=== PATIENT | female | born 1950 | race Caucasian/White ===

== ENCOUNTER 2019-12-24 12:01 | Emergency (ER) | payer OTHER, MEDICARE ==
--- OUTSIDE RECORDS SUMMARY | 2019-12-24 12:03 | XMS REPORT ---
:1950 Author Organization eClinicalWorks Care Team Providers Name Role Phone Mathew Hartman Provider Role Unavailable Allergies No Known Allergies Problems Problem Type Condition Code Onset Dates Condition Status Problem Current moderate episode of major F32.1 Active depressive disorder without prior episode Problem CKD (chronic kidney disease), stage N18.3 Active III Problem Uncontrolled type 2 diabetes E11.65 Active mellitus without complication, without long-term current use of insulin Problem Subclinical hypothyroidism E03.9 Active Problem Adult BMI 30.0-30.9 kg/sq m Z68.30 Active Problem Peripheral arterial disease I73.9 Active Problem Essential hypertension I10 Active Problem Patient is Restorationist Z78.9 Active Problem Atopic dermatitis, unspecified type L20.9 Active Problem Mixed hyperlipidemia E78.2 Active Problem History of bilateral breast cancer Z85.3 Active Problem GERD without esophagitis K21.9 Active Assessment Peripheral arterial disease I73.9 Active Problem Primary insomnia F51.01 Active Medications No Known Medications Results No Known Results Summary Purpose eClinicalWorks Submission
--- OUTSIDE RECORDS SUMMARY | 2019-12-24 12:03 | XMS REPORT ---
[...] without long-term current use of insulin Problem History of bilateral breast cancer Z85.3 Active Problem GERD without esophagitis K21.9 Active Problem Primary insomnia F51.01 Active Problem Subclinical hypothyroidism E03.9 Active Problem Adult BMI 30.0-30.9 kg/sq m Z68.30 Active Problem Peripheral arterial disease I73.9 Active Problem Essential hypertension I10 Active Problem Patient is Mu-ism Z78.9 Active Problem Atopic dermatitis, unspecified type L20.9 Active Problem Mixed hyperlipidemia E78.2 Active Medications Medication Code Code Instructions Start End Date Status Dosage System Date Praluent [facility] 60614586985 75 MG/ML Sep 14, Active as directed Subcutaneous 2018 Results No Known Results Summary Purpose eClinicalWorks Submission
--- OUTSIDE RECORDS SUMMARY | 2019-12-24 12:03 | XMS REPORT ---
:1950 Author Organization [facility] Address [address] [place] [address] Dr. [place] [address] [place] [address] Care Team Providers Name Role Phone RICOGRACIELA EMERY Unavailable Unavailable Problems This patient has no known problems. Allergies, Adverse Reactions, Alerts This patient has no known allergies or adverse reactions. Medications This patient has no known medications. Results Test Description Test Time Test Comments Text Results Atomic Results Result Comments POCT-CREATININE 2016-12-24 12:38:00 Test Item Value Reference Range Comments POC-CREATININE (BEAKER) (test 1.2 mg/dL 0.6-1.3 TESTED AT [facility] [id number][facility] [address] POC-EGFR (BEAKER) (test 45 mL/min/1.73M2 [id number]=[id number])
--- OUTSIDE RECORDS SUMMARY | 2019-12-24 12:03 | XMS REPORT ---
[...] Essential hypertension I10 Active Problem Patient is Christian Z78.9 Active Problem Atopic dermatitis, unspecified type L20.9 Active Problem Mixed hyperlipidemia E78.2 Active Medications No Known Medications Results No Known Results Summary Purpose eClinicalWorks Submission
--- OUTSIDE RECORDS SUMMARY | 2019-12-24 12:04 | XMS REPORT ---
:1950 Author Organization eClinicalWorks Care Team Providers Name Role Phone Mathew Hartman Provider Role Unavailable Allergies, Adverse Reactions, Alerts Substance Reaction Event Type N.K.D.A. Info Not Available Non Drug Allergy Problems Problem Type Condition Code Onset Dates Condition Status Problem Primary insomnia F51.01 Active Problem Mixed hyperlipidemia E78.2 Active Problem Essential hypertension I10 Active Problem Chronic kidney disease, stage 3 N18.3 Active (moderate) Problem Iron deficiency anemia secondary to D50.8 Active inadequate dietary iron intake Problem Type 2 diabetes mellitus with E11.22 Active diabetic chronic kidney disease Problem Subclinical hypothyroidism E03.9 Active Problem Atopic dermatitis, unspecified type L20.9 Active Problem Peripheral arterial disease I73.9 Active Problem Adult BMI 30.0-30.9 kg/sq m Z68.30 Active Assessment Localized swelling of right lower R22.41 Active leg Assessment Pain in right lower leg M79.661 Active Problem CKD (chronic kidney disease), stage N18.3 Active III Problem Patient is Muslim Z78.9 Active Problem Current moderate episode of major F32.1 Active depressive disorder without prior episode Problem History of bilateral breast cancer Z85.3 Active Problem Uncontrolled type 2 diabetes E11.65 Active mellitus without complication, without long-term current use of insulin Problem GERD without esophagitis K21.9 Active Medications Medication Code Code Instructions Start End Status Dosage System Date Date Tizanidine HCl [facility] 28001235083 4 MG Orally Active 1 tablet as once a day needed Tamoxifen ND 19803564423 20 MG Orally Active 1 tablet Citrate Once a day Metformin HCl ND 94800105172 500 MG Orally Active 1 tablet with Twice a day a meal Tizanidine HCl ND 18653035615 4 MG Orally Active 1 tablet as once a day needed Ramipril ND 56068251339 2.5 MG Orally Active 1 capsule Once a day Prozac [facility] 26383810965 20 MG Orally Active 1 capsule in Once a day the morning Januvia [facility] 12462683772 50 MG Orally Active 1 tab once a day Amlodipine [facility] 99189177646 5 MG Orally Active 1 tablet Besylate Once a day Praluent [facility] 59356211810 75 MG/ML Sep 14, Active as directed Subcutaneous 2019 Triamcinolone ND 76940103742 0.1 % Oct 22, Active 1 application Acetonide Externally 2018 to affected Twice a day area Zocor [facility] 58354682731 20 MG Orally Nov 25, Active 1 tablet in Once a day 2019 the evening Bisoprolol-Union [facility] 85040508845 10-6.25 MG Active 1 tablet chlorothiazide Orally Once a day Simvastatin [facility] 24186676824 20 MG Active TAKE 1 TABLET BY MOUTH EVERY DAY IN THE EVENING Ferrous Sulfate [facility] 95602929200 325 (65 Fe) MG Nov 25, Active 1 tablet Orally BID [address] [facility] 76475714729 20 MG Orally Active 1 tablet Once a day Results No Known Results Summary Purpose eClinicalWorks Submission
--- OUTSIDE RECORDS SUMMARY | 2019-12-24 12:04 | XMS REPORT ---
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
--- OUTSIDE RECORDS SUMMARY | 2019-12-24 12:04 | XMS REPORT ---
:1950 Author Organization eClinicalWorks Care Team Providers Name Role Phone Mathew Hartman Provider Role Unavailable Allergies, Adverse Reactions, Alerts Substance Reaction Event Type N.K.D.A. Info Not Available Non Drug Allergy Problems Problem Type Condition Code Onset Dates Condition Status Assessment Patient is Confucianism Z78.9 Active Assessment Statin intolerance Z78.9 Active Assessment Adult BMI 30.0-30.9 kg/sq m Z68.30 Active Assessment CKD (chronic kidney disease), stage N18.3 Active III Assessment History of bilateral breast cancer Z85.3 Active Assessment GERD without esophagitis K21.9 Active Problem History of bilateral breast cancer Z85.3 Active Assessment Subclinical hypothyroidism E03.9 Active Problem GERD without esophagitis K21.9 Active Assessment Primary insomnia F51.01 Active Problem Primary insomnia F51.01 Active Problem Mixed hyperlipidemia E78.2 Active Problem Essential hypertension I10 Active Problem Chronic kidney disease, stage 3 N18.3 Active (moderate) Problem Iron deficiency anemia secondary to D50.8 Active inadequate dietary iron intake Assessment Mixed hyperlipidemia E78.2 Active Assessment Essential hypertension I10 Active Problem Type 2 diabetes mellitus with E11.22 Active diabetic chronic kidney disease Assessment Current moderate episode of major F32.1 Active depressive disorder without prior episode Problem Subclinical hypothyroidism E03.9 Active Problem Atopic dermatitis, unspecified type L20.9 Active Problem Peripheral arterial disease I73.9 Active Problem Adult BMI 30.0-30.9 kg/sq m Z68.30 Active Assessment Type 2 diabetes mellitus with E11.22 Active diabetic chronic kidney disease Assessment Iron deficiency anemia secondary to D50.8 Active inadequate dietary iron intake Assessment Medicare annual wellness visit, Z00.00 Active subsequent Problem CKD (chronic kidney disease), stage N18.3 Active III Problem Patient is Confucianism Z78.9 Active Problem Current moderate episode of major F32.1 Active depressive disorder without prior episode Problem Uncontrolled type 2 diabetes E11.65 Active mellitus without complication, without long-term current use of insulin Medications Medication Code Code Instructions Start End Status Dosage System Date Date Ramipril [facility] 90441357518 2.5 MG Orally Active 1 capsule Once a day Zocor [facility] 86280927175 20 MG Orally Nov 25, Active 1 tablet in Once a day 2019 the evening Bisoprolol-[place] [facility] 09919406575 10-6.25 MG Active 1 tablet chlorothiazide Orally Once a day Praluent [facility] 07283661598 75 MG/ML Sep 14, Active as directed Subcutaneous 2018 Triamcinolone [facility] 48162694253 0.1 % Oct 22, Active 1 application Acetonide Externally 2018 to affected Twice a day area Prozac [facility] 26434660028 20 MG Orally Active 1 capsule in Once a day the morning Tizanidine HCl [facility] 49420227711 4 MG Orally Active 1 tablet as once a day needed Tizanidine HCl [facility] 53570173129 4 MG Orally Active 1 tablet as once a day needed Tamoxifen [facility] 78773026122 20 MG Orally Active 1 tablet Citrate Once a day Metformin HCl [facility] 72715971253 500 MG Orally Active 1 tablet with Twice a day a meal Ramipril [facility] 04900173650 2.5 MG Orally Active 1 capsule Once a day Prozac [facility] 22617265283 20 MG Orally Active 1 capsule in Once a day the morning Ferrous Sulfate [facility] 70280565407 325 (65 Fe) MG Nov 25, Active 1 tablet Orally BID 2019 Prilosec C [facility] 19636657281 20 MG Orally Active 1 tablet Once a day Bisoprolol-[place] [facility] 49171128766 10-6.25 MG Active 1 tablet chlorothiazide Orally Once a day Novuvia [facility] 69865737837 50 MG Orally Active 1 tab once a day Ezetimibe [facility] 56290811360 10 MG Orally Inactive 1 tablet Once a day Amlodipine [facility] 28657339940 5 MG Orally Active 1 tablet Besylate Once a day Amlodipine [facility] 09468971320 5 MG Orally Active 1 tablet Besylate Once a day Results No Known Results Summary Purpose eClinicalWorks Submission
--- NOTE | 2019-12-24 15:52 | RAD REPORT ---
EXAM DESCRIPTION: RAD - Knee Right 3 View - 12/24/2019 2:21 pm CLINICAL HISTORY: KNEE PAIN PT STATES FELT A POP, trauma to the knee COMPARISON: No comparisonsNone. FINDINGS: No fracture, dislocation or periosteal reaction.Trace amount of joint fluid is present. Th ere is marginal spurring in the patella. No joint space narrowing. No foreign body or other soft tiss ue abnormality. IMPRESSION: Minimal for age right knee joint degenerative change. No acute finding. Clinical concerns for internal derangement or occult bony injury could be further assessed with MR im aging.
--- NOTE | 2019-12-24 16:17 | ER ---
Nurse's Notes [facility] Name: Yelena Ortez Age: 69 yrs Sex: Female : 1950 Arrival Date: 12/24/2019 Time: 12:03 Bed 26 Private MD: Diagnosis: Internal derangement of knee Presentation: 12/24 12:17 Presenting complaint: Patient states: "I had gone to Dr. Hartman on Thursday because my aj1 right leg was swelling and he told me i have peripheral edema, last night I was standing up and I heard a real loud pop in my knee and it became really painful and I couldn't stand on it, and its swollen up more. Transition of care: patient was not received from another setting of care. Onset of symptoms was December 2019. Risk Assessment: Do you want to hurt yourself or someone else? Patient reports no desire to harm self or others. Initial Sepsis Screen: Does the patient meet any 2 criteria? No. Patient's initial sepsis screen is negative. Does the patient have a suspected source of infection? No. Patient's initial sepsis screen is negative. Care prior to arrival: None. 12:17 Method Of Arrival: Wheelchair aj1 12:17 Acuity: MARKUS 4 aj1 Triage Assessment: 12:21 General: Appears in no apparent distress. uncomfortable, Behavior is calm, cooperative, aj1 appropriate for age. Pain: Complains of pain in right knee. Neuro: Level of Consciousness is awake, alert, obeys commands. Cardiovascular: Patient's skin is warm and dry. Respiratory: Airway is patent Respiratory effort is even, unlabored, Respiratory pattern is regular, symmetrical. Historical: - Allergies: 12:21 No Known Allergies; aj1 - Home Meds: 12:21 amlodipine 5 mg tab 1 tab once daily [Active]; bisoprolol-hydrochlorothiazide 10-6.25 aj1 mg oral tab 1 tab once daily [Active]; ramipril 2.5 mg Oral cap 1 cap once daily [Active]; Januvia 100 mg oral tab 1 tab once daily [Active]; Prilosec 20 mg Oral cpDR 1 cap once daily [Active]; Prozac 20 mg Oral cap 1 cap once daily [Active]; tizanidine 4 mg oral tab 1 tab at bedtime [Active]; - PMHx: 12:21 Hypertension; Diabetes - NIDDM; GERD; breast cancer; aj1 - PSHx: 12:21 back surgery; Hysterectomy; eye surgery; Hernia repair; Mastectomy; shoulder surgery; aj1 cataract surgery; - Immunization history:: Flu vaccine is up to date. - Coronavirus screen:: The patient has NOT traveled to [place] in the past 14 days. - Social history:: Smoking status: Patient/guardian denies using tobacco. - Ebola Screening: : Patient denies travel to an Ebola-affected area in the 21 days before illness onset. Screenin:55 Abuse screen: Denies threats or abuse. Nutritional screening: No deficits noted. vc Tuberculosis screening: No symptoms or risk factors identified. Fall Risk Ambulatory Aid- Crutches/Cane/Walker (15 pts). Gait- Weak (10 pts.). Total [place]a Fall Scale indicates Low Risk Score (25-44 pts). Vital Signs: 12:21 BP 122 / 62; Pulse 67; Resp 18; Temp 97.8; Pulse Ox 98% on R/A; Weight 81.65 kg (R); aj1 Height 5 ft. 4 in. (162.56 cm) (R); Pain 9/10; 13:30 BP 127 / 76; Pulse 66; Resp 17; Pulse Ox 98% on R/A; vc 15:18 BP 134 / 78; Pulse 60; Resp 16; Temp 97.8; Pulse Ox 98% ; lt1 16:00 BP 126 / 77; Pulse 68; Resp 18; Pulse Ox 98% on R/A; vc 12:21 Body Mass Index 30.90 (81.65 kg, 162.56 cm) [facility] ED Course: 12:03 Patient arrived in ED. as 12:18 Triage completed. aj1 12:21 Arm band placed on Patient placed in an exam room. [facility] 12:33 Moe Hughes PA is PHCP. [facility] 12:33 Ren Bagley MD is Attending Physician. [facility] 12:55 Patient has correct armband on for positive identification. Sitting in wheelchair, per patient request. 13:19 Angelika Carrasco, RN is Primary Nurse. 15:15 Knee Right 3 View XRAY Sent. 16:16 Rohit Sheridan MD is Referral Physician. [facility] 16:25 No provider procedures requiring assistance completed. Patient did not have IV access vc during this emergency room visit. Knee immobilizer applied on right knee. Administered Medications: No medications were administered Outcome: 16:16 Discharge ordered by . bud 16:25 Discharged to home via wheelchair, with significant other. vc 16:25 Condition: good 16:25 Discharge instructions given to patient, significant other, Instructed on discharge instructions, follow up and referral plans. Demonstrated understanding of instructions, follow-up care. 16:28 Patient left the ED. vc Signatures: Rosette Metz, RN RN aj1 Moe Hughes PA PA Yaritza Messer Leah lt1 Angelika Carrasco RN RN vc Corrections: (The following items were deleted from the chart) 19:49 19:47 To radiology for Knee Right 3 View+RAD.RAD.BRZ. vc vc
--- NOTE | 2019-12-24 16:17 | EDPHYS ---
Physician Documentation [facility] Name: Yelena Ortez Age: 69 yrs Sex: Female : 1950 Arrival Date: 12/24/2019 Time: 12:03 Bed 26 Private MD: ED Physician Ren Bagley HPI: 12/24 12:42 This 69 yrs old Female presents to ER via Wheelchair with complaints of Knee jmm Pain - swelling. 12:42 The patient presents with an injury, pain, that is acute, swelling. Onset: The jmm symptoms/episode began/occurred acutely, yesterday. Modifying factors: The symptoms are alleviated by remaining still, the symptoms are aggravated by weight bearing. This is a 69 year old female with a history of htn, dm, that presents to the ED with complaints of right knee pain which occurred after standing and hearing a loud pop. Patient states she has been having ongoing pain and swelling to the leg. PCP ordered outpatient US to rule out DVT which was negative and diagnosed the patient with peripheral edema. Patient denies chest pain or shortness of breath. . Historical: - Allergies: 12:21 No Known Allergies; aj1 - Home Meds: 12:21 amlodipine 5 mg tab 1 tab once daily [Active]; bisoprolol-hydrochlorothiazide 10-6.25 aj1 mg oral tab 1 tab once daily [Active]; ramipril 2.5 mg Oral cap 1 cap once daily [Active]; Januvia 100 mg oral tab 1 tab once daily [Active]; Prilosec 20 mg Oral cpDR 1 cap once daily [Active]; Prozac 20 mg Oral cap 1 cap once daily [Active]; tizanidine 4 mg oral tab 1 tab at bedtime [Active]; - PMHx: 12:21 Hypertension; Diabetes - NIDDM; GERD; breast cancer; aj1 - PSHx: 12:21 back surgery; Hysterectomy; eye surgery; Hernia repair; Mastectomy; shoulder surgery; aj1 cataract surgery; - Immunization history:: Flu vaccine is up to date. - Coronavirus screen:: The patient has NOT traveled to [place] in the past 14 days. - Social history:: Smoking status: Patient/guardian denies using tobacco. - Ebola Screening: : Patient denies travel to an Ebola-affected area in the 21 days before illness onset. ROS: 12:42 Constitutional: Negative for fever, chills, and weight loss, Cardiovascular: Negative [facility] for chest pain, palpitations, and edema, Respiratory: Negative for shortness of breath, cough, wheezing, and pleuritic chest pain, Abdomen/GI: Negative for abdominal pain, nausea, vomiting, diarrhea, and constipation. 12:42 MS/extremity: Positive for injury or acute deformity, pain, swelling. 12:42 All other systems are negative. Exam: 12:42 Constitutional: This is a well developed, well nourished patient who is awake, alert, jmm and in no acute distress. Head/Face: atraumatic. Eyes: EOMI, no conjunctival erythema appreciated ENT: Moist Mucus Membranes Neck: Trachea midline, Supple Chest/axilla: Normal chest wall appearance and motion. Cardiovascular: Regular rate and rhythm. No edema appreciated Respiratory: Normal respirations, no respiratory distress appreciated Abdomen/GI: Non distended, soft Back: Normal ROM Skin: General appearance color normal 12:42 Musculoskeletal/extremity: ROM: intact in all extremities, medial and lateral knee pain is elicited on ROM, compartments are soft, NVI. 12:42 Skin: Appearance: Color: normal in color. 12:42 Neuro: Orientation: is normal, Mentation: is normal, Memory: is normal. 12:42 Psych: Behavior/mood is pleasant, cooperative. Vital Signs: 12:21 BP 122 / 62; Pulse 67; Resp 18; Temp 97.8; Pulse Ox 98% on R/A; Weight 81.65 kg (R); aj1 Height 5 ft. 4 in. (162.56 cm) (R); Pain 9/10; 13:30 BP 127 / 76; Pulse 66; Resp 17; Pulse Ox 98% on R/A; vc 15:18 BP 134 / 78; Pulse 60; Resp 16; Temp 97.8; Pulse Ox 98% ; lt1 16:00 BP 126 / 77; Pulse 68; Resp 18; Pulse Ox 98% on R/A; vc 12:21 Body Mass Index 30.90 (81.65 kg, 162.56 cm) aj1 MDM: 12:42 Patient medically screened. [facility] 16:15 Data reviewed: vital signs, nurses notes. Counseling: I had a detailed discussion with bud the patient and/or guardian regarding: the historical points, exam findings, and any diagnostic results supporting the discharge/admit diagnosis, radiology results, the need for outpatient follow up, to return to the emergency department if symptoms worsen or persist or if there are any questions or concerns that arise at home. ED course: Patient advised to follow up with pcp or ortho for further evaluation. patient understood and agrees with the plan of care. . 12/24 12:57 Order name: Knee Right 3 View XRAY [facility] 12/24 15:50 Order name: Knee Immobilizer; Complete Time: 16:19 [facility] Administered Medications: No medications were administered Disposition: 17:53 Co-signature as Attending Physician, Ren Bagley MD. rn Disposition: 12/24/19 16:16 Discharged to Home. Impression: Internal derangement of knee. - Condition is Stable. - Discharge Instructions: Knee Pain. - Prescriptions for Tylenol- Codeine #3 300-30 mg Oral Tablet - take 1 tablet by ORAL route every 6 hours As needed; 12 tablet. - Medication Reconciliation Form, Thank You Letter, Antibiotic Education, Prescription Opioid Use form. - Follow up: Rohit Sheridan MD; When: 2 - 3 days; Reason: Recheck today's complaints, Continuance of care, Re-evaluation by your physician. Signatures: Dispatcher [employer] EDMS Rosette Metz RN RN aj1 Moe Hughes PA PA [facility] Ren Bagley MD MD rn Calcote, Vanessa, RN RN vc Corrections: (The following items were deleted from the chart) 16:28 16:16 12/24/2019 16:16 Discharged to Home. Impression: Internal derangement of knee. vc Condition is Stable. Forms are Medication Reconciliation Form, Thank You Letter, Antibiotic Education, Prescription Opioid Use. Follow up: Dr. Rohit Sheridan; When: 2 - 3 days; Reason: Recheck today's complaints, Continuance of care, Re-evaluation by your physician. [facility]
[2019-12-24 16:56] VITALS: TEMP 97.8; O2SAT 98
[2019-12-24 17:00] VITALS: BP 126/77
== END 2019-12-24 16:28 | disposition home or self-care (01) ==
LOC: ER 12:01
DX: M23.91 Unspecified internal derangement of right knee (principal); I10 Essential (primary) hypertension; E11.9 Type 2 diabetes mellitus without complications; K21.9 Gastro-esophageal reflux disease without esophagitis; Z85.3 Personal history of malignant neoplasm of breast
CPT/HCPCS: 99283

== ENCOUNTER 2021-04-02 15:20 | Emergency (ER) | payer OTHER, MEDICARE ==
--- OUTSIDE RECORDS SUMMARY | 2021-04-02 15:24 | XMS REPORT | Continuity of Care Document ---
:1950 Author Organization [facility] t Address [address] [place] [address] Care Team Providers Name Role Phone RICO Primary Care Physician Unavailable Gunner LEIVA Attending Clinician Doctor Unassigned, Name Attending Clinician Unavailable Lobo LEIVA, A Attending Clinician Torrey LEIVA, J Attending Clinician Sal Negrete MD Attending Clinician MICHELL Attending Clinician Unavailable SHELLI Attending Clinician Unavailable Michell Attending Clinician RICO Attending Clinician Unavailable Sal Negrete MD Admitting Clinician Michell Admitting Clinician Payers Payer Name Policy Type Policy Effective Date Expiration Date Sour ce Number MEDICAREMEDICARE PART [id number] 2013 MD Duane Manzano AND 00:00:00 [id number] ON, [place] [employer] [id number] 2017 MD Zepeda OF RETIRED 00:00:00 PERSONSAARP-SECONDARY [id number] 8-PresentMedigap Problems Condition Condition Condition Status Onset Resolution Last Treating Co mments Source Name Details Category Date Date Treatment Clinician Date Diabetes Problem Active 2017-05-01 Mem oria mellitus 3- 04:00:52 l (disorder) Diabetes 00:00: He rmann mellitus 00 (disorder) Active 12/31/2016 Problem 05/01/2017 BS range- 105-170, pt states new onset dm, non-insuli n dependent [facility] Paraesopha Paraesopha Disease Active 2013-[address] geal geal 0-27 [facility] Malignant Problem Active 2017-05-01 Me moria neoplasm, 11-02 04:00:52 l primary 00:00: [place] (morpholog Malignant 00 ic neoplasm, abnormalit primary y) (morpholog ic abnormalit y) Active 4 Problem 7 Breast Cancer- received chemothera py [id number] removed and 2013 [facility] Hypertensi Problem Active 2017-05-01 M emoria ve 11-02 04:00:52 l disorder, 00:00: Stephen systemic Hypertensi 00 arterial ve (disorder) disorder, systemic arterial (disorder) Active 11/02/1989 Problem 05/01/2017 mon by pcp- denies any other cardiac problems [facility] History of History of Problem Resolve Univers Complex Complex d ity of tear of tear of [place] medial medial Physici meniscus meniscus ans of right of right knee as knee as current current injury, injury, initial initial encounter encounter History of History of Problem Resolve Univers Diabetes Diabetes d ity of [place] Physici ans History of History of Problem Resolve Univers High blood High blood d it y of pressure pressure [place] Physici ans History of History of Problem Resolve Univers high high d ity of cholestero cholestero [place] Physici ans Right knee Right knee Problem Active U nivers pain pain ity of [place] Physici ans Osteoarthr Osteoarthr Problem Active U nivers itis of itis of [place] of right knee right knee [place] [facility] Complex Complex Problem Active Univers tear of tear of ity of medial medial [place] meniscus meniscus Physic i of right of right ans knee as knee as current current injury, injury, subsequent subsequent encounter encounter Stress Stress Problem Active Univers fracture fracture ity of of right of right [place] tibia, tibia, Physici initial initial ans encounter encounter Left Left Problem Active Univers shoulder shoulder ity of pain pain [place] Physici ans Rotator Rotator Problem Active Univers cuff cuff ity of arthropath arthropath [place] y of left y of left Phys ici shoulder shoulder ans Traumatic Traumatic Problem Active Uni vers rotator rotator ity of cuff tear, cuff tear, [place] left, left, Physici initial initial ans encounter encounter Acid Problem Active 2017-05-01 Memor ia reflux 04:00:52 l (finding) Acid [place] reflux (finding) Active Problem 05/01/2017 [facility] Depression Problem Active 2017-05-01 M emoria - motion 04:00:52 l (qualifier Gavin n value) Depression - motion (qualifier value) Active Problem 05/01/2017 [facility] Shoulder Problem Active 2017-05-01 Mem oria pain 04:00:52 l (finding) Shoulder Her daniels pain (finding) Active Problem 05/01/2017 right shoulder [facility] Final: Problem 2017-05-01 Memor ia Traumatic 04:00:52 l arthropath Final: Herm morteza y, right Traumatic shoulder arthropath y, right shoulder 05/01/2017 [facility] 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 Pt states from a thyroid medication [facility] History of Past Illness Condition Condition Condition Status Onset Resolution Last Treating Co mments Source Name Details Category Date Date Treatment Clinician Date Discharge Problem 2017-05-01 2017-05-01 Memoria Diagnosis: 04-28 04:00:52 04:00:52 l Pain in 05:00: [place] right Discharge 00 shoulder Diagnosis: Pain in right shoulder 7 05/01/2017 [facility] Allergies, Adverse Reactions, Alerts Allergy Allergy Status Severity Reaction(s) Onset Inactive Treating Comm ents Source Name Type Date Date Clinician No Known DA Active [facility] Allergie 1-15 [place] 00:[place]: [address] Social History Social Habit Start Date Stop Date Quantity Comments Source Sex Assigned At [facility] Social History 2017-04-29 2017-04-29 [facility] Justina lara 14:40:00 14:40:00 Alcohol intake 2014-10-09 2014-10-09 Current [facility] es - 00:00:00 00:00:00 non-drinker of Medical Ce nter alcohol (finding) Smoking Status Start Date Stop Date Source Never smoker [facility] Medications Ordered Filled Start Stop Current Ordering Indication Dosage Frequency Signature Comments Components Source Medication Medication Date Date Medication? Clinician (SIG) Name Name Meloxicam Meloxicam Yes SHASTA TAKE 1 Univers 15 MG Oral 15 MG Oral 3-06 GALARZA M.D. TABLET BY ity of Tablet Tablet 00:00: MOUTH [place] 00 EVERY DAY Physici NEEDED ans Acetaminoph Acetaminoph Yes SHASTA Take 1 Univers en-Codeine en-Codeine 2-27 MARCHS M.D. tablet ity of 300-30 MG 300-30 MG 00:00: every 12 [place] Oral Tablet Oral Tablet 00 hours as Physici needed for ans pain FLUoxetine 2017-11 Yes 20mg Take 20 mg M D (PROzac) 20 0-30 by mouth Ruben rso MG tablet 19:27: daily. n 47 tiZANidine 2017-11 Yes 4mg 4 mg. MD (ZANAFLEX) 0-29 Anderso 4 MG 16:20: n capsule 55 omeprazole 2017-11 Yes 20mg Take 20 mg M D (PriLOSEC) 0-29 by mouth Cas so 20 mg 16:16: every n capsule 24 morning before breakfast. amLODIPine 2017-11 Yes 5mg Take 5 mg MD (NORVASC) 5 0-29 by mouth. And erso mg tablet 16:16: n 24 benazepril 2017-11 Yes 10mg Take 10 mg M D (LOTENSIN) 0-29 by mouth. Ruben rso 10 mg 16:16: n tablet 24 FLUoxetine 2017-11 Yes TAKE 1 MD (PROzac) 20 0-18 CAPSULE BY An derso mg capsule 00:00: MOUTH n 00 EVERY DAY IN THE MORNING PIOTRIA 50 2017-11 Yes TAKE 1 MD mg tablet 0-18 TABLET BY Cas so 00:00: MOUTH n 00 EVERY DAY ramipril 2017-11 Yes TAKE 1 MD (ALTACE) 0-18 CAPSULE BY Cas so 2.5 MG 00:00: MOUTH n capsule 00 EVERY DAY metFORMIN Yes TAKE 1 MD (GLUCOPHAGE 7-03 TABLET BY And erso ) 500 mg 00:00: MOUTH WITH n tablet 00 A MEAL TWICE A DAY ORALLY DAY(S) bisoprolol 2016-11 Yes TAKE 1 MD (ZEBETA) 10 2-26 TABLET BY And erso mg tablet 00:00: MOUTH n 00 EVERY DAY NS bolus No 250 mL, Memori a 250 mL 6-28 IV, BOLUS, l 19:30: other (see comment), start date 04/29/17 14:30:00 CDT Enoxaparin No 40 mg = Jose J red 6-28 0.4 mL, l 14:00: Injection, Subcutaneo us, Daily, first dose 04/29/17 9:00:00 CDT tamoxifen No 20 mg, Memori a 20 mg oral 6-28 Misc, l tablet 14:00: Oral, Daily, first dose 04/29/17 9:00:00 CDT, Patient's Own Meds Januvia No 50 mg = 1 Memor ia 6-28 tabs, Tab, l 14:00: Oral, Daily, first dose 04/29/17 9:00:00 CDT, Patient's Own Meds Prilosec No 20 mg = 1 Jose J red 6-28 caps, l 14:00: Cap-EC, Oral, Daily, first dose 04/29/17 9:00:00 CDT PROzac 20 No 20 mg, Memori a mg oral 6-28 Misc, l capsule 14:00: Oral, Daily, first dose 04/29/17 9:00:00 CDT, Patient's Own Meds bisoprolol- No 1 tabs, Mem oria hydroCHLORO 6-28 Misc, l thiazide 10 14:00: Oral, Kendal nn mg-6.25 mg 00 Daily, oral tablet first dose 04/29/17 9:00:00 CDT, Patient's Own Meds benazepril 2016- No 10 mg = 1 Me moria 6-28 tabs, Tab, l 14:00: Oral, [place] Daily, first dose 04/29/17 9:00:00 CDT, Patient's Own Meds Amlodipine No 5 mg = 1 Mem oria -28 tabs, Tab, l 14:00: Oral, Stephen Daily, first dose 04/29/17 9:00:00 CDT Acetaminoph 2016- Yes Special Mem oria en 325 MG / 6-28 Instructio l Hydrocodone 12:51: ns: 1 tabs Stephen Bitartrate 00 Oral 10 MG Oral q4-6hr Tablet [[place] 10/325] Celebrex No 200 mg = 2 Mem oria -28 caps, Cap, l 02:00: Oral, BID, first dose 04/28/17 21:00:00 CDT Colace No 100 mg = 1 Memor ia -28 caps, Cap, l 02:00: Oral, BID, first dose 04/28/17 21:00:00 CDT Milk of No 30 mL, Memoria Magnesia 6-28 Susp, l 02:00: Oral, BID, first dose 04/28/17 21:00:00 CDT Cefazolin No 2 gm, Memoria 28 Soln-IV, l 00:30: IV Stephen 00 Piggyback, q8hr, infuse over 30 minutes, order duration: 3 doses, first dose 04/28/17 19:30:00 CDT, stop date 04/29/17 19:29:00 CDT, Prophylaxi s Cefazolin Yes 1 gm, Memoria 6-27 Soln-IV, l 22:00: IV Stephen 00 Piggyback, q8hr, infuse over 30 minutes, order duration: 3 doses, first dose 04/28/17 17:00:00 CDT, stop date 04/29/17 16:59:00 CDT, Prophylaxi s insulin 2016-0 No 3 - 15 Memoria regular 6-27 units, l sliding 21:30: Injection, Herm morteza scale 00 Subcutaneo MEDIUM us, QIDACHS, first dose 04/28/17 16:30:00 CDT Sodium 2017-0 No 1,000 mL, Memori a Chloride 6-27 IV, 75 l 0.9% 1,000 20:10: mL/hr, Kendal nn mL 00 start date 04/28/17 15:10:00 CDT Ondansetron No 8 mg = 1 Me moria 6-27 tabs, l 19:41: Tab-Dis, Stephen 00 Oral, q6hr PRN for nausea/vom iting, first dose 04/28/17 14:41:00 CDT Ondansetron No 4 mg = 2 Me moria 6-27 mL, l 19:30: Injection, Stephen 00 IV Push, q8hr PRN for nausea/vom iting, first dose 04/28/17 14:30:00 CDT Morphine No 3 mg = 0.3 Mem oria 6-27 mL, l 19:30: Injection, [place] 00 IV Push, q3hr PRN for breakthrou gh pain, first dose 04/28/17 14:30:00 CDT Promethazin No 25 mg = 1 M emoria e 6-27 mL, l 19:30: Injection, Stephen 00 IM, q4hr PRN for severe nausea, first dose 04/28/17 14:30:00 CDT Diphenhydra No 25 mg = 1 M emoria mine 6-27 caps, Cap, l 19:30: Oral, q8hr [place] 00 PRN for itching, first dose 04/28/17 14:30:00 CDT Acetaminoph No Notes: Max Memoria en 325 MG / 6-27 4gm l Hydrocodone 19:30: acetaminop Stephen Bitartrate 00 hen in 24 10 MG Oral hours Tablet [[place] 10/325] Lactated No IV, start Jose J red Ringers 27 date l Injection 18:59: 04/28/17 Herm morteza 00 13:59:00 CDT, stop date 04/28/17 13:59:00 CDT Bupivacaine Yes 300 mL, Mem oria 0.25% 300 04-28 Nerve l mL pump 300 18:56: Block, 5 He rmann mL 00 mL/hr, start date 04/28/17 13:56:00 CDT Ondansetron No 8 mg = 1 Me moria 6-27 tabs, l 18:56: Tab-Dis, Stephen 00 Oral, Once PRN for nausea/vom iting, first dose 04/28/17 13:56:00 CDT Promethazin No 12.5 mg = M emoria e -27 0.5 mL, l 18:56: Injection, [place] IM, Once PRN for severe nausea, first dose 04/28/17 13:56:00 CDT Saline Lock No 10 mL, Jos Ej red Flush 04-28 Soln, IV l 18:56: Push, As [place] 00 Indicated PRN for flush, first dose 04/28/17 13:56:00 CDT Levalbutero No 0.63 mg = M emoria l 0.21 04-28 3 mL, l MG/ML 18:56: Soln, NEB, Gavin n Inhalant 00 Once PRN Solution for [Xopenex] shortness of breath or wheezing, first dose 04/28/17 13:56:00 CDT Dilaudid No 0.2 mg = Memor ia -27 0.2 mL, l 18:56: Injection, Stephen IV Push, q10min PRN for pain severe (7-10), first dose 04/28/17 13:56:00 CDT Lactated No IV, start Jose J red Ringers 04-28 date l Injection 18:26: 04/28/17 Herm morteza 00 13:26:00 CDT, stop date 04/28/17 13:26:00 CDT neostigmine No 4 mg = 8 Me moria 6-27 mL, l 18:21: Injection, [place] IV, Once, first dose 04/28/17 13:21:00 CDT, stop date 04/28/17 13:21:00 CDT glycopyrrol No 0.6 mg = 3 Memoria ate 6-27 mL, l 18:20: Injection, Stephen 00 IV, Once, first dose 04/28/17 13:20:00 CDT, stop date 04/28/17 13:20:00 CDT ondansetron 2016- No 4 mg = 2 Me moria 6-27 mL, l 18:17: Injection, Stephen 00 IV, Once, first dose 04/28/17 13:17:00 CDT, stop date 04/28/17 13:17:00 CDT LR 1,000 mL 2016-0 No 1,000 mL, M emoria 6-27 IV, 75 l 18:03: mL/hr, Stephen 00 start date 04/28/17 13:03:00 CDT Saline Lock No 10 mL, Jose J red Flush 04-28 Soln, IV l 18:03: Push, As Stephen 00 Indicated PRN for flush, first dose 04/28/17 13:03:00 CDT Ondansetron No 4 mg = 2 Me moria 6-27 mL, l 18:03: Injection, [place] 00 IV Push, q6hr PRN for nausea/vom iting, first dose 04/28/17 13:03:00 CDT ePHEDrine 2016-0 No 5 mg = 0.1 Me moria 6-27 mL, l 18:02: Injection, Stephen 00 IV, Once, first dose 04/28/17 13:02:00 CDT, stop date 04/28/17 13:02:00 CDT fentaNYL No 50 mcg = 1 Mem oria 6-27 mL, l 17:53: Injection, Stephen 00 IV, Once, first dose 04/28/17 12:53:00 CDT, stop date 04/28/17 12:53:00 CDT ePHEDrine 2016-0 No 15 mg = Memor ia - 0.3 mL, l 17:46: Injection, [place] 00 IV, Once, first dose 04/28/17 12:46:00 CDT, stop date 04/28/17 12:46:00 CDT phenylephri 2016-0 No 0.1 mg = Me moria ne - 0.01 mL, l 17:34: Injection, [place] 00 IV, Once, first dose 04/28/17 12:34:00 CDT, stop date 04/28/17 12:34:00 CDT phenylephri 2017-0 No 0.1 mg = Me moria ne + 6-27 0.01 mL, l sterile 17:24: Injection, Herm morteza water 1 mL 00 IV, Once, first dose 04/28/17 12:24:00 CDT, stop date 04/28/17 12:24:00 CDT ePHEDrine 2017-0 No 10 mg = Memor ia 6-27 0.2 mL, l 17:13: Injection, Stephen 00 IV, Once, first dose 04/28/17 12:13:00 CDT, stop date 04/28/17 12:13:00 CDT ePHEDrine 2017-0 No 10 mg = Memor ia 6-27 0.2 mL, l 16:58: Injection, [place] 00 IV, Once, first dose 04/28/17 11:58:00 CDT, stop date 04/28/17 11:58:00 CDT ePHEDrine 2017-0 No 10 mg = Memor ia 6-27 0.2 mL, l 16:53: Injection, Stephen 00 IV, Once, first dose 04/28/17 11:53:00 CDT, stop date 04/28/17 11:53:00 CDT dexamethaso 2017-0 No 8 mg = 2 Me moria ne 6-27 mL, l 16:51: Injection, Stephen 00 IV, Once, first dose 04/28/17 11:51:00 CDT, stop date 04/28/17 11:51:00 CDT vecuronium 2017-0 No 5 mg = 0.5 M emoria 04-28 EA, l 16:47: Powder-Inj [place] 00 , IV, Once, first dose 04/28/17 11:47:00 CDT, stop date 04/28/17 11:47:00 CDT ceFAZolin 2017-0 No 2 gm, Memoria 04-28 Soln-IV, l 16:45: IV Stephen 00 Piggyback, Once, first dose 04/28/17 11:45:00 CDT, stop date 04/28/17 11:45:00 CDT succinylcho 2017-0 No 100 mg = 5 Memoria line 6-27 mL, l 16:33: Injection, Stephen 00 IV, Once, first dose 04/28/17 11:33:00 CDT, stop date 04/28/17 11:33:00 CDT rocuronium 2017-0 No 5 mg = 0.5 M emoria 6-27 mL, l 16:32: Injection, Stephen 00 IV, Once, first dose 04/28/17 11:32:00 CDT, stop date 04/28/17 11:32:00 CDT Misc 2017-0 No 1,000 mL, Memoria Medication 04-28 Soln-IV, l 16:32: IV, Once, [place] first dose 04/28/17 11:32:00 CDT, stop date 04/28/17 11:32:00 CDT propofol 2017- No 100 mg = Memor ia 04-28 10 mL, l 16:32: Emulsion, [place] 00 IV, Once, first dose 04/28/17 11:32:00 CDT, stop date 04/28/17 11:32:00 CDT lidocaine 2017-0 No 2 mL, Memoria 04-28 Injection, l 16:32: IV, Once, [place] 00 first dose 04/28/17 11:32:00 CDT, stop date 04/28/17 11:32:00 CDT midazolam 2017-0 No 1 mg = 1 Jose J red 6-27 mL, l 16:31: Injection, [place] 00 IV, Once, first dose 04/28/17 11:31:00 CDT, stop date 04/28/17 11:31:00 CDT fentaNYL 2017-0 No 50 mcg = 1 Mem oria 6-27 mL, l 16:31: Injection, [place] 00 IV, Once, first dose 04/28/17 11:31:00 CDT, stop date 04/28/17 11:31:00 CDT fentaNYL 2017-0 No 25 mcg = Memor ia -27 0.5 mL, l 16:23: Injection, Stephen 00 IV, Once, first dose 04/28/17 11:23:00 CDT, stop date 04/28/17 11:23:00 CDT midazolam 2017-0 No 0.5 mg = Jose J red 6-27 0.5 mL, l 16:23: Injection, [place] 00 IV, Once, first dose 04/28/17 11:23:00 CDT, stop date 04/28/17 11:23:00 CDT midazolam 2017- No 0.5 mg = Jose J red 6-27 0.5 mL, l 16:05: Injection, Stephen 00 IV, Once, first dose 04/28/17 11:05:00 CDT, stop date 04/28/17 11:05:00 CDT fentaNYL 2017- No 25 mcg = Memor ia 6-27 0.5 mL, l 16:05: Injection, Stephen IV, Once, first dose 04/28/17 11:05:00 CDT, stop date 04/28/17 11:05:00 CDT Cefazolin 2016- No 2 gm, Memoria 6-27 Soln-IV, l 15:00: IV Stephen Piggyback, Once, infuse over 30 minutes, first dose 04/28/17 10:00:00 CDT, stop date 04/28/17 10:00:00 CDT, patient weight 50-120 kg, Prophylaxi s tiZANidine 2016- Yes 2 mg = 1 Mem oria 2 mg oral 6-27 tabs, l tablet 14:24: Oral, qHS, Kendal nn 00 0 Refill(s) Lidocaine 2016- No 0.2 mL, Memor ia 2% 0.2 mL 6-27 Injection, l IV Start 14:07: Subcutaneo [facility]] 00 , Once PRN for other (see comment), first dose 04/28/17 9:07:00 CDT LR 1,000 mL 2016-0 No 1,000 mL, M emoria 6-27 IV, 30 l 14:07: mL/hr, Stephen 00 start date 04/28/17 9:07:00 CDT sitagliptin 2016- Yes 50 mg = 1 M emoria 50 MG Oral 6-16 tabs, l Tablet 21:55: Oral, [place] [Novuv] 00 Daily, # 30 tabs, 0 Refill(s), DM Omeprazole 2016- Yes Special Jose J red 20 MG 6-16 Instructio l Enteric 21:55: ns: [place] Coated 00 instructed Capsule to take [Prilosec] morning of surgery Bisoprolol Yes 1 tabs, Jose J red Fumarate 10 6-16 Oral, l MG / 21:55: Daily, 0 [place] Hydrochloro 00 Refill(s), thiazide HTN 6.25 MG Oral Tablet tamoxifen Yes 20 mg = 1 Mem oria 20 mg oral 6-16 tabs, l tablet 21:55: Oral, [place] 00 Daily, 0 Refill(s), breast cancer Fluoxetine Yes mg caps, Mem oria 20 MG Oral 6-16 Oral, l Capsule 21:55: Daily, 0 Gavin n [Prozac] 00 Refill(s), depression benazepril Yes 10 mg = 1 Me moria 10 mg oral 6-16 tabs, l tablet 21:55: Oral, Stephen 00 Daily, 0 Refill(s), HTN amLODIPine Yes Special Jose J red 5 mg oral 6-16 Instructio l tablet 21:55: ns: take [place] 00 am of procedure tamoxifen Yes Carcinoma TAKE 1 M D (NOLVADEX) 6-27 of areola TABLET BY Anderso 20 mg 00:00: of right MOUTH ONCE n tablet 00 female A DAY breast benazepril 2013-11 Yes 10mg QD Take [address] (LOTENSIN) 2-10 by mouth [facility] - 10 MG 09:11: daily. Medical tablet 23 Center HYDROcodone 2013-11 Yes 1{tbl} Take [address] -acetaminop 2-10 tablet by Anderson baig (NORCO 09:11: mouth Medica l 10-325) 23 every 6 Center 10-325 mg (six) per tablet hours as needed for Pain. TiZANidine 2013-11 Yes 4mg QD Take [address] (ZANAFLEX) 2-10 by mouth [facility] - 4 MG 09:11: daily. Medical capsule 23 Center FLUoxetine 2013-11 Yes 20mg QD Take [address] (PROZAC) 20 2-10 by mouth Luke [facility] - MG tablet 09:11: daily. Medica l 23 Center omeprazole 2013-11 Yes 20mg QD Take [address] (PRILOSEC) 2-10 by mouth [facility] - 20 MG 09:11: daily. Medical capsule 23 [facility] TAMOXIFEN 2014-1 Yes QD Take by [facility]10 mouth [facility] - (TAMOXIFEN 09:11: daily. Medic al ORAL) [address] [place] bisoprolol 2013-11 Yes 10mg QD Take [address] (ZEBETA) 10 2-10 by mouth Luke s - MG tablet 09:11: daily. Medica l [address] [place] amLODIPine 2013-11 Yes 5mg QD Take [address] (NORVASC) 5 2-10 by mouth Luke s - MG tablet 09:11: daily. Medica [address] Tamoxifen Tamoxifen Yes Mathew [address] [facility] [address] Citrate Citrate [place] [facility] Tizanidine Tizanidine Yes Mathew [address] [facility] [address] HCl HCl [place] as needed [facility] Ferrous Ferrous Yes Mathew [address] [facility] Sulfate Sulfate [place] [facility] - [facility] Bisoprolol- Bisoprolol- Yes Mathew [address] [facility] Hydrochloro Hydrochloro [place] [facility] Bisoprolol- Bisoprolol- Yes Mathew [address] [facility] Hydrochloro Hydrochloro [place] [facility] - thiazide thiazide [facility] Simvastatin Simvastatin Yes Mathew TAKE [address] [facility] [place] TABLET BY [facility] - MOUTH Memoria EVERY DAY l IN THE Outpati EVENING ent Clinics True Metrix True Metrix Yes Mathew USE [address] [facility] Blood Blood [place] STRIP ONCE [facility] - Glucose Glucose A DAY IN [facility] ia Test Test VITRO 90 l DAYS [facility] Yes Mathew [address] [facility] [place] in the [facility] - morning [facility] Ramipril Ramipril Yes Mathew [address] [facility] [place] [facility] Zocor Zocor Yes Mathew [address] [facility] [place] in the [facility] - evening [facility] Proza Prozac Yes Mathew [address] [facility] [place] in the [facility] - morning [facility] Metformin Metformin Yes Mathew [address] [facility] HCl HCl [place] with a [facility] - meal [facility] Prilosec Prilosec Yes Mathew [address] OTC OTC [place] [facility] Amlodipine Amlodipine Yes Mathew [address] [facility] Besylate Besylate [place] [facility] ent Clinics Triamcinolo Triamcinolo Yes Mathew APPLY TO [facility] ne ne [place] AFFECTED [facility] - Acetonide Acetonide AREA TWICE Memoria A DAY FOR l 10 DAYS Outpati ent Clinics Eulogioalisonremberto Garcia Yes Mathew [address] [facility] amLODIPine amLODIPine Yes M.A. Uni vers Besylate Besylate ity of TABS TABS [place] [facility]ici ans Bisoprolol Bisoprolol Yes M.A. Uni vers Fumarate Fumarate ity of TABS TABS [place] [facility] ans Ramipril Ramipril Yes M.A. Univers CAPS CAPS ity of [place] Physici ans Eulogioalisonia Eulogioalisonremberto Yes M.A. Univers TABS TABS ity of [place] Physici ans PriLOSEC PriLOSEC Yes M.A. Univers OTC TBEC OTC TBEC ity of [place] [facility]ici ans Prozac TABS Prozac TABS Yes M.A. U nivers ity of [place] Physici ans Simvastatin Simvastatin Yes M.A. U nivers TABS TABS ity of [place] Physici ans Vital Signs Vital Name Observation Time Observation Value Comments Source Temperature Oral (F) 2017-04-29 13:00:00 36.6 [facility] [place] Heart Rate 2017-04-29 13:00:00 [facility] [place] Respitory Rate 2017-04-29 13:00:00 Memori al [place] Systolic (mm Hg) 2017-04-29 13:00:00 Jose J rial [place] Diastolic (mm Hg) 2017-04-29 13:00:00 Mem orial [place] Temperature Oral (F) 2017-04-29 09:00:00 36.8 [facility] [place] Respitory Rate 2017-04-29 09:00:00 Memori al [place] Heart Rate 2017-04-29 09:00:00 [facility] [place] Systolic (mm Hg) 2017-04-29 09:00:00 Jose J rial [place] Diastolic (mm Hg) 2017-04-29 09:00:00 Mem orial [place] Systolic (mm Hg) 2017-04-29 05:00:00 Jose J rial [place] Diastolic (mm Hg) 2017-04-29 05:00:00 Mem orial [place] Respitory Rate 2017-04-29 05:00:00 Maggyhany al [place] Heart Rate 2017-04-29 05:00:00 [facility] [place] Temperature Oral (F) 2017-04-29 05:00:00 36.6 [facility] [place] Temperature Oral (F) 2017-04-28 18:40:00 36.4 [facility] [place] Height 2017-04-28 14:08:00 165.1 cm [facility] [place] Height 2017-04-17 21:45:00 165.1 cm [facility] Stephen Procedures Procedure Date / Time Performing Clinician Source Performed [UTP] Ortho - Surgery 2020-07-16 00:00:00 [facility] Scheduling Physicians MR Shoulder wo contrast 2020-07-06 00:00:00 [facility] [id number] Physicians MR Knee wo contrast 2019-12-28 00:00:00 [facility] [id number] Physicians TOTAL SHOULDER 2017-04-28 17:06:00 [facility] Her daniels REPLACEMENT [id number] IO (Right)<sup>1</sup> eye surgery 2013-11-02 00:00:00 [facility] Her daniels Hiatal hernia 2013-11-02 00:00:00 [facility] Her daniels Mastectomy<sup>2</sup> 2013-11-02 00:00:00 Memnimco Mitchell portacatheter<sup>3</womack 2012-11-02 00:00:00 Jose J lorena Mitchell p> back 2003-11-02 00:00:00 [facility] daniels surgery<sup>4</sup> History of Back Surgery [facility] Physicians History of Hysterectomy [facility] Physicians History of Mastectomy [facility] Physicians History of Shoulder [facility] [place] [facility] Physicians Plan of Care Planned Activity Planned Date Details Comments Source Diagnostic Test 2020-07-16 [UTP] [facility] Pending 00:00:00 Surgery Scheduling Physician s [code = [UTP] Ortho - Surgery Scheduling] Diagnostic Test 2020-07-16 [UTP] [facility] Pending 00:00:00 Surgery Scheduling Physician s [code = [UTP] Ortho - Surgery Scheduling] Diagnostic Test 2020-07-16 [UTP] Ortho [facility] Pending 00:00:00 Surgery Scheduling Physician s [code = [UTP] Ortho - Surgery Scheduling] Diagnostic Test 2020-07-06 MR Shoulder wo [facility] Pending 00:00:00 contrast 02076 [code Physici ans = [id number]] Diagnostic Test 2020-07-06 MR Shoulder wo [facility] Pending 00:00:00 contrast 10842 [code Physici ans = [id number]] Encounters Start End Encounter Admission Attending Care Care Encounter Source Date/Time Date/Time Type Type Clinicians Facility Department ID 2021-03-12 2021-03-12 [facility] [id number] 2021-02-19 2021-02-19 Outpatient [facility] [id number] [facility] 2021-02-08 2021-02-08 Outpatient [facility] [id number] [facility] 2021-01-10 2021-01-10 Orders Doctor AMELIA [id number] 00:00:00 00:00:00 Only Unassigned, MAGEN [id number] Numidia [facility] [id number] [id number] 2021 2021 Telephone IMANI Diamond [id number] 00:00:00 00:00:00 Jessica Worley [id number] [facility] [id number] [facility] [id number] BLDG. [id number] 2020-11-30 2021-01-03 [facility] Joe Hirsch 1.2.84 0.114 [id number] 15:06:00 13:00:00 Encounter Fatmata Negrete Magen [id number] 0 [facility] [id number] 2020-11-07 2020-11-07 Outpatient [facility] [id number] [facility] 2020-11-07 2020-11-07 Outpatient [facility] [id number] [facility] 00[facility]00 [facility] 2020-07-16 2020-07-16 [facility] [id number] [facility] 11:15:00 11:15:00 t; SHASTA GALARZA, - [facility] [facility] 2020-07-10 2020-07-10 [facility] [id number] 10:40:00 10:40:[address] [facility] 2020-07-05 2020-07-05 [facility] [id number] [facility] 10:15:00 10:15:00 t; SHASTA GALARZA, - [facility] [place] RiccardoEvelina [facility]ici [facility] 2020-04-24 2020-04-24 [facility] [id number] 13:27:00 13:27:00 [facility] 2020-04-04 2020-04-04 [facility] [id number] 13:45:00 13:45:00 [facility] 2020-03-28 2020-03-28 [facility] [id number] [facility] 13:47:00 13:47:00 [facility] 2020-02-06 2020-02-06 [facility] [id number] [facility] 11:15:00 11:15:00 t; SHASTA GALARZA, - [facility] [place] MariluToshia [facility]ici [facility] 2020-01-06 2020-01-06 [facility] [id number] [facility] 11:15:00 11:15:00 t; SHASTA GALARZA, - [facility] [place] MariluToshia [facility] 2019-12-30 2019-12-30 [facility] [id number] [facility] 13:15:00 13:15:00 t; SHASTA GALARZA, - [facility] [place] 1 [facility] 2019-12-28 2019-12-28 [facility] [id number] [facility] 13:15:00 13:15:00 t; SHASTA GALARZA, - [facility] [place] 1 [facility] 2019-12-26 2019-12-26 [facility] [id number] 13:33:00 13:33:00 t [place] Nab[place] s - Drive [facility] Medicine Outpati ent Clinics 2019-12-22 2019-12-22 [facility] [id number] 14:00:00 14:00:00 t [place] Nab[place] s - [employer] [facility] Outpat[facility] ent Clinics 2019-12-21 2019-12-21 [facility] [id number] 07:52:00 07:52:00 t [place] [employer] s - Drive [facility] Medicine Outpati ent Clinics 2019-11-25 2019-11-25 [facility] [id number] 10:30:00 10:30:00 t [place] Nabto s - [employer] [facility] Medicine Outpati ent Clinics 2019-09-28 2019-09-28 [facility] [id number] 14:03:00 14:03:00 t [place] [employer] Lu[employer]rov[employer] s - Drive [facility] Medicine Outpati ent Clinics 2019-09-14 2019-09-14 [facility] [id number] 11:37:00 11:37:00 t [place] Che[place] [employer] LuTrovit s - Drive [facility] Medicine Outpati ent Clinics 2019-08-29 2019-08-29 [facility] [id number] 13:19:00 13:19:00 t [place] [employer] - [employer] [facility] Medicine Outpati ent Clinics 2019-08-16 2019-08-16 [facility] [id number] 11:05:00 11:05:00 t [place] Nabto s - Drive [facility] Medicine l Medicine Outpati ent Clinics 2019-08-16 2019-08-16 [facility] [id number] 10:00:00 10:00:00 t [place] Che[place] [employer] s - Drive [facility] l Medicine Outpati ent Clinics 2019-06-20 2019-06-20 [facility] [id number] 11:30:00 11:30:00 t [place] Nabto s - Drive [facility] Medicine Outpati ent Clinics 2019-04-27 2019-04-27 [facility] [id number] 10:45:00 10:45:00 t [place] Nab[place] s - [employer] [facility] Medicine Outpati ent Clinics 2019-01-26 2019-01-26 [facility] [id number] [facility] 10:15:00 10:15:00 t [place] Nab[place] s - [employer] [facility] Medicine Outpati ent Clinics 2018-12-06 2018-12-06 [facility] [id number] [facility] 14:29:00 14:29:00 t [place] Nab[place] s - [employer] [facility] Medicine Medicine Outpati ent Clinics 2018-12-06 2018-12-06 [facility] [id number] [facility] 10:00:00 10:00:00 t [place] Nab[place] s - [employer] [facility] Medicine Outpati ent Clinics 2018-12-02 2018-12-02 [facility] [id number] 09:00:00 09:00:00 t [place] N[place] s - Drive [facility] Medicine Medicine Outpati ent Clinics 2018-10-22 2018-10-22 [facility] [id number] [facility] 09:45:00 09:45:00 t [place] Nab[place] s - Drive [facility] Medicine Medicine Outpati ent Clinics 2018-06-10 2018-06-10 [facility] [id number] 15:07:00 15:07:00 t [place] Nab[place] s - Drive [facility] Medicine l Medicine Outpati ent Clinics 2018-05-04 2018-05-04 [facility] [id number] 11:00:00 11:00:00 [facility] 2018-04-27 2018-04-27 Outpatient Mohan Prestont [id number] 07:42:00 07:42:00 [facility] 2018-04-07 2018-04-07 Appointmen [facility]IS MARQUES [facility] [id number] Univers 15:15:00 15:15:00 t; FRIDA MARQUES ity of [place], M.D. [place] M.D. Physici ans 2018-03-10 2018-03-10 Appointmen CHAPIS MARQUES [facility] [id number] Univers 15:45:00 15:45:00 t; FRIDA MARQUES ity of [place], M.D. [place] M.D. Physici ans 2018-02-01 2018-02-01 [facility] [id number] 10:45:00 10:45:00 [facility] 2017-04-28 2017-04-29 Outpatient Michell, [id number] 07:55:34 09:40:00 Shasta 8 Results Test Description Test Time Test Comments Results Result Comments Source BASIC METABOLIC PANEL 2020-11-17 06:11:00 Test Item Value Reference Range Interpretation Comme nts SODIUM (test code = NA) 137 MMOL/L 137-145 N POTASSIUM (test code = K) 4.4 MMOL/L 3.5-5.1 N CHLORIDE (test code = CL) 100 MMOL/L 98-107 N CARBON DIOXIDE (test code = CO2) 27 MMOL/L 22-30 N GLUCOSE (test code = GLU) 161 MG/DL 74-106 H BLOOD UREA NITROGEN (test code = 15 MG/DL 7-17 N BUN) GLOMERULAR FILTRATION RATE (test 55 Reporting units: ml/min/1.73 code = GFR) m2 (Modified M DRD Formula)Referen ce Range: > or = 60 ml/min/1.7 3 m2 CREATININE (test code = CREAT) 1.00 MG/DL 0.52-1.04 N CALCIUM (test code = CA) 10.1 MG/DL 8.4-10.2 N LIPID PROFILE (CORONARY RISK)2020-11-17 06:11:00 Test Item Value Reference Range Interpretation Comments TRIGLYCERIDES (test 140 MG/DL TRIGLYCE RIDES code = TRIG) REFERENCE RANGE:Normal: < 150 mg/dLBorderline High: 150-199 mg/dLHi gh: 200-499 mg/dLVe ry High: >=500 mg/ dL CHOLESTEROL (test code 132 MG/DL <200 = CHOL) HDL CHOLESTEROL (test 31 MG/DL 40-59 L code = HDL) LIPOPROTEIN LDL (test 74 MG/DL 0-99 N code = LDL) OPTIMAL........ .<100 mg/dLNEAR OPTIMAL/ABOVE OPTIMAL........ .100-12 9 mg/dL BORDERLINE HIGH.........13 0-159 mg/dL HIGH.........16 0-189 mg/dL VERY HIGH...... ...>/= 190 mg/dL [id number] 06:11:00 Test Item Value Reference Range Interpretation Comments MAGNESIUM (test code = MAG) 2.3 MG/DL 1.6-2.3 N BASIC METABOLIC [id number] 06:00:00 Test Item Value Reference Range Interpretation Comments SODIUM (test code = 137 MMOL/L 137-145 N NA) POTASSIUM (test code = 4.4 MMOL/L 3.5-5.1 N K) CHLORIDE (test code = 100 MMOL/L 98-107 N CL) CARBON DIOXIDE (test 27 MMOL/L 22-30 N code = CO2) GLUCOSE (test code = 161 MG/DL 74-106 H GLU) BLOOD UREA NITROGEN 15 MG/DL 7-17 N (test code = BUN) GLOMERULAR FILTRATION 55 Report ing units: RATE (test code = GFR) ml/mi n/1.73 m2 (Modified MDRD Formula)Referen ce Range: > or = 6 0 ml/min/1.73 m2 CREATININE (test code 1.00 MG/DL 0.52-1.04 N = CREAT) CALCIUM (test code = 10.1 MG/DL 8.4-10.2 N CA) LIPID PROFILE (CORONARY RISK)2020-11-17 06:00:00 Test Item Value Reference Range Interpretation Comments TRIGLYCERIDES (test 140 MG/DL TRIGLYCE RIDES code = TRIG) REFERENCE RANGE:Normal: < 150 mg/dLBorderline High: 150-199 mg/dLHi gh: 200-499 mg/dLVe ry High: >=500 mg/ dL CHOLESTEROL (test code 132 MG/DL <200 = CHOL) HDL CHOLESTEROL (test 31 MG/DL 40-59 L code = HDL) LIPOPROTEIN LDL (test MG/DL 0-99 code = LDL) [id number] 06:00:00 Test Item Value Reference Range Interpretation Comments MAGNESIUM (test code = MAG) 2.3 MG/DL 1.6-2.3 N BASIC METABOLIC [id number] 05:59:00 Test Item Value Reference Range Interpretation Comments SODIUM (test code = 137 MMOL/L 137-145 N NA) POTASSIUM (test code = 4.4 MMOL/L 3.5-5.1 N K) CHLORIDE (test code = 100 MMOL/L 98-107 N CL) CARBON DIOXIDE (test MMOL/L 22-30 code = CO2) GLUCOSE (test code = MG/DL 74-106 GLU) BLOOD UREA NITROGEN MG/DL 7-17 (test code = BUN) GLOMERULAR FILTRATION 55 Report ing units: RATE (test code = GFR) ml/mi n/1.73 m2 (Modified MDRD Formula)Referen ce Range: > or = 6 0 ml/min/1.73 m2 CREATININE (test code 1.00 MG/DL 0.52-1.04 N = CREAT) CALCIUM (test code = MG/DL 8.7-9.7 CA) LIPID PROFILE (CORONARY RISK)2020-11-17 05:59:00 Test Item Value Reference Range Interpretation Comments TRIGLYCERIDES (test code = TRIG) MG/DL CHOLESTEROL (test code = CHOL) 132 MG/DL <200 HDL CHOLESTEROL (test code = HDL) MG/DL 40-59 LIPOPROTEIN LDL (test code = LDL) MG/DL 0-99 [id number] 05:59:00 Test Item Value Reference Range Interpretation Comments MAGNESIUM (test code = MAG) MG/DL 1.6-2.3 BASIC METABOLIC [id number] 05:57:00 Test Item Value Reference Range Interpretation Comments SODIUM (test code = NA) 137 MMOL/L 137-145 N POTASSIUM (test code = K) 4.4 MMOL/L 3.5-5.1 N CHLORIDE (test code = CL) 100 MMOL/L 98-107 N CARBON DIOXIDE (test code = CO2) MMOL/L 22-30 GLUCOSE (test code = GLU) MG/DL 74-106 BLOOD UREA NITROGEN (test code = MG/DL 7-17 BUN) GLOMERULAR FILTRATION RATE (test code = GFR) CREATININE (test code = CREAT) MG/DL 0.52-1.04 CALCIUM (test code = CA) MG/DL 8.7-9.7 LIPID PROFILE (CORONARY RISK)2020-11-17 05:57:00 Test Item Value Reference Range Interpretation Comments TRIGLYCERIDES (test code = TRIG) MG/DL CHOLESTEROL (test code = CHOL) MG/DL <200 HDL CHOLESTEROL (test code = HDL) MG/DL 40-59 LIPOPROTEIN LDL (test code = LDL) MG/DL 0-99 [id number] 05:57:00 Test Item Value Reference Range Interpretation Comments MAGNESIUM (test code = MAG) MG/DL 1.6-2.3 PROTHROMBIN [id number] 05:53:00 Test Item Value Reference Range Interpretation Comments PROTHROMBIN TIME 12.6 SECONDS 9.4-12.5 H PATIENT (test code = PTP) INTERNATIONAL NORMAL 1.1 The INR is to be RATIO (test code = used only for INR) monitoring oral anticoagulantth erap y. INDICATION I NR VALUE ---- ---- ---- -------1. Prophylaxis, de ep venous thrombos is, including hig h risk surgery. 2.0 - 3.0 2. Prophylaxis, de ep venous thrombos is, hip surgery, treatment for d eep venous thrombosis or pulmonary prevention of systemic emboli sm in patients wit h valvular heart disease, atrial fibrillation, tissue heart va lve, or acute myocar dial infarction. 2.0 - 3 .0 3. Mechanical prosthesis hear t valves, recurrent syste shantel embolism. 3.0 - 4.5 Comments to Coding Advisor: WILL BRING SPECIMAN TO THE LABPTT [id number] 05:53:00 Test Item Value Reference Range Interpretation Comments PTT ACTIVATED (test code = APTT) 40.9 SECONDS 25.1-36.5 H Comments to Coding Advisor: WILL [facility] 2020-11-17 05:40:00 Test Item Value Reference Range Interpretation Comments WHITE BLOOD CELL (test code = 11.6 K/MM3 3.8-9.8 H WBC) RED BLOOD CELL (test code = 4.42 M/MM3 3.58-4.97 N RBC) HEMOGLOBIN (test code = HGB) 12.7 G/DL 11.2-14.9 N HEMATOCRIT (test code = HCT) 40.4 % 33.2-43.5 N MEAN CELL VOLUME (test code = 91 fL 80.7-99.1 N MCV) MEAN CELL HGB (test code = MCH) 28.7 pg 27.0-34.1 N MEAN CELL HGB CONCETRATION 31.4 % 32.2-35.7 L (test code = MCHC) RED CELL DISTRIBUTION WIDTH 12.7 % 12.1-15.2 N (test code = RDW) PLATELET COUNT (test code = 302 K/MM3 129-368 N PLT) MEAN PLATELET VOLUME (test code 9.8 fl 7.4-10.4 N = MPV) NEUTROPHIL % (test code = NT%) 70.5 % 43-75 N IMMATURE GRANULOCYTE % (test 0.4 % 0.0-2.0 N code = IG%) LYMPHOCYTE % (test code = LY%) 16.0 % 14-44 N MONOCYTE % (test code = MO%) 8.0 % 4-13 N EOSINOPHIL % (test code = EO%) 4.1 % 0-6 N BASOPHIL % (test code = BA%) 1.0 % 0-2 N NUCLEATED RBC % (test code = 0.0 % 0-1.0 N NRBC%) NEUTROPHIL # (test code = NT#) 8.16 K/mm3 2.0-7.6 H IMMATURE GRANULOCYTE # (test 0.05 x10 3/uL 0-0.03 H code = IG#) LYMPHOCYTE # (test code = LY#) 1.85 K/mm3 1.0-3.8 N MONOCYTE # (test code = MO#) 0.92 K/mm3 0.1-0.8 H EOSINOPHIL # (test code = EO#) 0.47 K/mm3 0.0-0.2 H BASOPHIL # (test code = BA#) 0.11 K/mm3 0.0-0.2 N NUCLEATED RBC # (test code = 0.00 K/mm3 0.0-0.1 N NRBC#) COVID 19 Asymptomatic IH [id number] 05:17:00 Test Item Value Reference Range Interpretation Comments COVID 19 NEGATIVE Negative "Negative resul ts from Asymptomatic IH AG patients with symptom (test code = onset beyondfiv e days, COVNONPUIAG) should be sam дмитрий as presumptive, andconfirmation with a molecular assay , if necessary forpa tient management may be performed. Nega tive results do notr ule out COVID-19 and sh ould not be used as the sole basisfor treatm ent or patient managem ent decisions, includinginfect ion control decisio ns. Negative result s should beconsidered in the context of a pa tients recent exposure s,history, and the presenc e of clinical signs and symptomsconsist ent with COVID-19.This t est detects both vi able andnon-viable S ARS-CoV and SARS CoV-2. Test performance dep endson the amount of virus (antigen) in the sample." Spec Comments: TO BE OBTAINED IN THE ER PRIOR TO COMING TO CV/IR MR Shoulder wo contrast [id number] 15:30:00EXAM: Shoulder wo contrast MRIDATE: 07/11/2020 14:30 CDT.INDICATION: LEFT SHOULDER PAIN, TRAUMATIC ROTATOR CUFF TEAR - R/O ROTATOR CUFFARTHROPATHY AND MASSIVE ROTATOR CUFF TEAR.COMPARISON: None available.TECHNIQUE: A multiplanar, multisequence, noncontrast MRI of the left shoulderis performed.FINDINGS:Suboptimal evaluation due to mild motion artifact on the coronal sequence.LONG BICEPS TENDON* The long head biceps tendon is not clearly seen. However, it appears to belocated within the bicipital groove where there is concern for a chronic,partial- thickness tear (axial image 16, sagittal T2 image 11).Signalabnormality measures at least 2.0 cm craniocaudal. The intra-articular portionis not identified .GLENOHUMERAL JOINT* Labrum: There is predominantly intermediate signal and marked contourirregularity throughout the posterior half of the labrum (axial image 16).There is also heterogeneous signal and globular morphology about theanteroinferior labrum from 3-5 o'clock (axial image 15). There is an i ncompletedefect of intermediate signal about the anterosuperior labrum (axial image 17).There is also volume loss, undersurface intermediate signal and contourirregularity about the superior labrum (coronal image 13). No paralabral cystsare detected.* Cartilage: No focal defect.* Ligaments: Unremarkable.* Joint fluid: There is a trace amount of glenohumeral joint fluid.ROTATOR CUFF AND ASSOCIATED STRUCTURESRotator cuff:* Supraspinatus: Full-thickness tear of the supraspinatus and conjoinedtendon. The area of interest measures at least 3.7 cm AP and 4.6 cm transverse(sagittal T2 image 16, coronal image 13).* Infraspinatus: Moderate to severe undersurface tendinosis about the anteriorinfraspinatus with undersurface irregularity most notable at the proximalcritical zone. No discrete tear is identified at this level (sagittal T2 image11, coronal image 16).* Subscapularis: There appears to be afull-thickness tear throughout thesubscapularis. Estimated retraction is 1.9 cm to the mid humeral head (axialimage 13). Background severe tendinosis about the distal tendon fibers, fromthe mid humeralhead to the glenoid (axial image 12).* Teres Minor: Intact.Associated structures:* Musculature: There is no muscular tear or contusion. There is greater than50% fatty streaking of the supraspinatus with moderate loss of the muscle bulk(sagittal T1 image 27). There is also greater than 50% fatty streaking at thesubscapularis with severe loss of the muscle bulk (sagittal T1 image 28). Thereis mild loss of the infraspinatus muscle bulk of image 21).* Bursa: Trace subacromial/subdeltoid bursal fluid is present (coronal image16).* Acromioclavicular joint: There are expected degenerative changes of theacromioclavicular joint. A type 2 acromion configuration is noted. No anterioror lateral acromial downsloping is identified.BONES* No fracture is identified.* The visible bone marrow signal is unremarkable.IMPRESSION:1. LEFT rotator cuff:* Supraspinatus: Full-thickness tear of the supraspinatus and conjoinedtendon. The area of interest measures at least 3.7 cm AP and 4.6 cm transverse.* Infraspinatus: Moderate to severe undersurface tendinosis about the anteriorinfraspinatus with undersurface irregularity most notable at the proximalcritical zone. No discrete tear is identified at this level.* Subscapularis: There appears to be a full-thickness tear throughout thesubscapularis. Estimated retraction is approximately 1.9 cm to the mid humeralhead. Background severe tendinosis about the distal tendon fibers, from the midhumeral head to the glenoid.* Goutallier grade IV atrophy of the suprasp inatus and subscapularis muscles.There is moderate to severe loss of the supraspinatus muscle bulk and severeloss of the subscapularis muscle bulk. There is also mild loss of theinfraspinatus muscle bulk.2. Concern for a chronic tear of the long head biceps tendon, just distal tothe genu and spanningapproximately 2 cm craniocaudal. The intra-articularportion is not identified. No medial subluxationor dislocation is appreciated.3. 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.--Read by: Homero Marroquin MDDictated Date/time: 07/12/20 08:02Electronically Signed by: Homero MarroquinCA 07/12/2009:59FINAL REPORTUnLogan Regional Hosp[id number] 13:17:14027Qqgbhalo GnzspfxWJQRDUNQKT7824-48-74 11:10:62543Fwxrhesz Hermann VOLJOFCNZX0689-24-92 08:36:0024Memoriin CicrxgxDRFWLTAECM4604-53-96 08:36:001.33 [facility] CenterBbgbrigCHDSVXALCO7407-71-86 08:36:0013[facility] 2017-04-29 08:36:53542Qekzmswr XyisyboUFSPLNZLRJ5805-84-74 08:36:004.2[facility] AvmxoibJTCCSOAYTM7342-57-22 08:36:81181Ehggldxi SukjvryXNSLJFQZXL7679-01-99 08:36:005.3[facility] PxmbyfaYBFUQRSOLL8507-12-38 08:36:007.7[facility] MTIDATDKLZ1233-78-53 08:36:0086.9[facility] UstzevqFZREKPTUKX9683-95-13 08:36:00 0.0[facility] QkwgrwaLRUCATVRNC5400-24-40 08:36:000.0[facility] 2017-04-29 08:36:000.0[facility] MdtrqikCSCFCKBROQ5258-51-60 08:36:007.3[facility] JmjlpysNGFMRXPSQB4053-69-29 08:36:000.6[facility] LvoibgtFMIKZUZQGT6971-39-21 08:36:000.4[facility] QwgqaioEHHTEXBIPR9348-63-64 08:36:000.1[facility] AKJIBAJSLE4692-29-42 08:36:003.64[facility] WlviphzPOWRPQBHFO4219-71-05 08:36:00 8.4[facility]orial XggitmkYBDUXAUWYI2992-68-51 08:36:0010.6[facility] 2017-04-29 08:36:0031.7[facility] SqadhtmETXLCGFQJP6506-92-79 08:36:008.0[facility] MdlzxapRXVSZYNOWG9561-78-08 08:36:0013.4[facility] UslqhdiFNFMTMUXTJ4271-03-43 08:36:0033.3[facility] FecjjcmCCWOXNZNUN8359-18-89 08:36:02028Hmgktzmt [facility] HospitalWWQFNIILBN2509-14-83 08:36:00 Test Item Value Reference Range Interpretation Comments MCH (test code = MCH) 29.1 pg 27.0-31.0 [facility] UkmpzcqOBZLIDZGNN5585-53-29 08:36:0087.2[facility] 2017-04-29 08:36:0041[facility] WrffupfKUBFRRAUCZ0239-32-12 08:36:008.4[facility] NrqjkvbYZINBPWFJD0765-95-43 08:36:20257Qdhvsaev AwsafknATPRZWGYKX5941-93-72 08:36:0016.2[facility] SlwnbglFNMGASFKRY1784-39-67 02:09:48000Gxendopp Stephen ITQJHTXOCI4012-47-54 02:00:09479Gixaijtp YpltjsdILVHFREQDM3959-60-96 22:17:89390 [facility] CenterHxnxfbpIKKVCVAWWR9030-90-82 18:56:73671Ykrkposd HermannPOCT-CREATININE 2016-12-24 12:38:00 Test Item Value Reference Range Interpretation Comments POC-CREATININE 1.2 mg/dL 0.6-1.3 TESTED AT [facility] L 1317 ([facility]) (test [address] code = 1859) [facility] 77 478 POC-EGFR 45 mL/min/1.73M2 ([facility]) (test code = 1860)
[2021-04-02] MEDS ORDERED: ONDANSETRON 4 MG (ODT) TAB ONE (16:35)
--- NOTE | 2021-04-02 19:55 | ER ---
Nurse's Notes [facility] Name: Yelena Ortez Age: 71 yrs Sex: Female : 1950 Arrival Date: 04/02/2021 Time: 15:24 Bed Waiting Private MD: Diagnosis: Presentation: 04/02 16:11 Chief complaint: Patient states: RLQ and RUQ abdominal pain, N/V x 2 months, denies jl7 chest pain, denies shortness of breath. Coronavirus screen: Client denies travel out of the [place] in the last 14 days. At this time, the client does not indicate any symptoms associated with coronavirus-19. Ebola Screen: No symptoms or risks identified at this time. Initial Sepsis Screen: Does the patient meet any 2 criteria? No. Patient's initial sepsis screen is negative. Does the patient have a suspected source of infection? No. Patient's initial sepsis screen is negative. Risk Assessment: Do you want to hurt yourself or someone else? Patient reports no desire to harm self or others. Onset of symptoms was January 2021. Care prior to arrival: None. 16:11 Method Of Arrival: Wheelchair jl7 16:11 Acuity: MARKUS 3 jl7 Historical: - Allergies: 16:15 No Known Allergies; jl7 - PMHx: 16:15 breast cancer; Diabetes - NIDDM; GERD; Hypertension; jl7 - Immunization history:: Adult Immunizations unknown. - Social history:: Smoking status: Patient denies any tobacco usage or history of. Vital Signs: 16:11 BP 154 / 62; Pulse 68; Resp 17 S; Temp 98.7(O); Pulse Ox 97% on R/A; Weight 62.6 kg (R);jl7 ED Course: 15:24 Patient arrived in ED. ds1 16:14 Triage completed. jl7 16:15 Arm band placed on right wrist. Patient placed in waiting room, Patient notified of jl7 wait time. Administered Medications: 16:16 Drug: Zofran (Ondansetron) 4 mg Route: PO; jl7 Outcome: 19:54 Patient left the ED. bb Signatures: Radha Avalos ds1 Kelsie Woodall RN RN bb Shahbaz Cabral RN RN jl7
[2021-04-02 20:13] VITALS: BP 154/62; TEMP 98.7; O2SAT 97
== END 2021-04-02 19:54 | disposition left against medical advice (07) ==
LOC: ER 15:20
DX: R10.31 Right lower quadrant pain (principal); R10.11 Right upper quadrant pain; R11.2 Nausea with vomiting, unspecified; Z53.21 Procedure and treatment not carried out due to patient leaving prior to being seen by health care provider
CPT/HCPCS: 99282

== ENCOUNTER 2024-10-10 03:38 | Emergency (ER) | payer OTHER, MEDICARE ==
--- OUTSIDE RECORDS SUMMARY | 2024-10-10 03:41 | XMS REPORT | Clinical Summary ---
Author Name Unknown Organization [facility] Address [address] [place] [address] Care Team Providers Care Electromagnet Crane Operator Name Role Phone Soila Cade MD Unavailable [phone] Tete Sweeney MD Unavailable Jil Early APRN,BINGO CASHIER Unavailable [email or web address] Jay Jay Casper MD Unavailable [phone] Sully Barber MD Unavailable Brii Wallis APRN Unavailable Tra Abel APRN Unavailable [phone] Emma Sin APRN Unavailable [phone] Raven Barrios MD Primary Care Provider [phone] Allergies No known active allergies Medications * This document contains information received from the source organization and may not represent a complete record from that organization. tamoxifen (NOLVADEX) 20 mg tabletIndicatio ns:Carcinoma of areola of right female breast TAKE 1 TABLET BY MOUTH ONCE A DAY 30 tablet 7 04/28/2016 Active amLODIPine (NORVASC) 5 mg tablet Take 5 mg by mouth. Active benazepril (LOTENSIN) 10 mg tablet Take 10 mg by mouth. Active FLUoxetine (PROzac) 20 MG tablet Take 20 mg by mouth daily. Active omeprazole (PriLOSEC) 20 mg capsule Take 20 mg by mouth every morning before breakfast. Active tiZANidine (ZANAFLEX) 4 MG capsule 4 mg. Active metFORMIN (GLUCOPHAGE) 500 mg tablet TAKE 1 TABLET BY MOUTH WITH A MEAL TWICE A DAY ORALLY DAY(S) 05/04/2018 Active FLUoxetine (PROzac) 20 mg capsule TAKE 1 CAPSULE BY MOUTH EVERY DAY IN THE MORNING 1 08/19/2018 Active JANUVIA 50 mg tablet TAKE 1 TABLET BY MOUTH EVERY DAY 1 08/19/2018 Active ramipril (ALTACE) 2.5 MG capsule TAKE 1 CAPSULE BY MOUTH EVERY DAY 1 08/19/2018 Active bisoprolol (ZEBETA) 10 mg tablet TAKE 1 TABLET BY MOUTH EVERY DAY 1 10/27/2017 Active Active Problems Problem Noted Date Diagnosed Date Estrogen receptor positive status (ER+) Social History Tobacco Use Types Packs/Day Years Used Date Smoking Tobacco: Never Assessed Comments Unknown Sex and Gender Information Value Date Recorded Sex Assigned at Not on file 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 Gender Identity Not on file Sexual Orientation Not on file Obstetrics History Plan of Treatment Health Maintenance Due Date Last Done Comments Pneumococcal Vaccine: 65+ Years (1 of - PCV) 014 COVID-19 Vaccine (2023- season) 2024 Influenza Vaccine (#1) 2024 Insurance MEDICARE PART A AND B AARP-SECONDARY ONLY MEDICARE PART A AND B A[place] [id number] AARP-SECONDARY ONLY Advance Directives Documents on File Type Date Recorded 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 PCP - General Breast Medical Oncology 12/29/16 Soila Cade MD [address] [address] Physician 01/09/16 Tete Sweeney MD [address] [place] [id number] [email or web address] Physician 01/09/16 Jil Early APRN,BINGO CASHIER [email or web address] Nurse Practitioner 01/09/16 Jay Jay Casper MD [address] [place] [address] [place] [id number] [email or web address] Physician 01/09/16 Sully Barber MD [address] [place] [id number] [email or web address] Physician 01/09/16 Brii Wallis APRN [address] [place] [id number] [email or web address] Nurse Practitioner 01/09/16 Tra Abel APRN [facility] [place] [address] [email or web address] Nurse Practitioner 01/09/16 Emma Sin APRN [address] [place] [address] [email or web address] Nurse Practitioner 01/09/16
--- NOTE | 2024-10-10 06:34 | RAD REPORT ---
CT HEAD AND CERVICAL SPINE WITHOUT CONTRAST INDICATION: Fall, facial injury. COMPARISON: None TECHNIQUE: CT images of the head and cervical spine were obtained without contrast. Multiplanar refor mats were provided. Dose lowering techniques such as automated exposure control, iterative reconstruction, and mA and/or kV adjustment for patient size was utilized for this examination. FINDINGS: CT HEAD: PARENCHYMA: No acute arterial territory infarct or hemorrhage. No mass effect or midline shift. VENTRICLES: Normal in size for patient's age. EXTRA-AXIAL: No focal collection. Patent basilar cisterns. ORBITS: Unremarkable. BONES: No acute calvarial fracture. PARANASAL SINUSES: clear. MASTOIDS/MIDDLE EARS: Clear. SOFT TISSUES: Mild soft tissue swelling at left forehead. OTHER: None. CT CERVICAL SPINE: ALIGNMENT: Normal lordosis of the cervical spine. No spondylolisthesis. BONES: No acute fractures. No compression deformity. SPONDYLOSIS: Mild multilevel degenerative changes of the spine with disc space narrowing, marginal os teophytosis, and uncovertebral hypertrophy. POSTERIOR FOSSA: Unremarkable. SOFT TISSUES: Unremarkable. LUNG APICES: Clear. OTHER: None. IMPRESSION: 1. No acute intracranial abnormality. 2. No CT evidence of acute traumatic injury of cervical spine. Electronically signed by: Mis Funk MD 10/10/2024 06:28 AM [facility] Due to temporary technical issues with the PACS/ROR Media reporting system, reports are being ana maria d by the in-house radiologist without review as a courtesy to ensure prompt reporting the interpreting radiologist is fully responsible for the content of the report. Transcribed Date/Time: 10/10/2024 6:34 AM
--- NOTE | 2024-10-10 06:35 | RAD REPORT ---
XR KNEE 3 VIEWS LEFT INDICATION: GLF COMPARISON: None TECHNIQUE: 3 views of the left knee FINDINGS: BONES: Diffuse osteopenia. No acute fracture or malalignment. No suspicious sclerotic or lytic lesi on. SOFT TISSUE: Mild soft tissue swelling at anterior aspect of knee. OTHER: None. IMPRESSION: No acute bony abnormality. Electronically signed by: Mis Funk MD 10/10/2024 06:16 AM [facility] Due to temporary technical issues with the PACS/Giving Assistant reporting system, reports are being ana maria d by the in-house radiologist without review as a courtesy to ensure prompt reporting the interpreting radiologist is fully responsible for the content of the report. Transcribed Date/Time: 10/10/2024 6:35 AM
--- NOTE | 2024-10-10 07:05 | ER ---
Nurse's Notes [facility] Name: Yelena Ortez Age: 74 yrs Sex: Female : 1950 Arrival Date: 10/10/2024 Time: 03:38 Bed 5 Private MD: Mathew Hartman Diagnosis: Facial Injury;Knee Pain Presentation: 10/10 04:04 Acuity: MARKUS 2 vc1 04:04 Chief complaint: Patient states: SHOE GOT CAUGHT ON AC VENT IN FLOOR, TRIPPED AND FELL vc1 ON FACE. 04:04 Method Of Arrival: Ambulatory vc1 04:04 Trauma event details: Injury occurred in the [facility], Injury occurred: at 1 home. Injury occurred: October 10, 2024. 04:46 Coronavirus screen: Client denies travel out of the [place] in the last 14 days. At this vc1 time, the client does not indicate any symptoms associated with coronavirus-19. Ebola Screen: Patient negative for fever greater than or equal to 101.5 degrees Fahrenheit, and additional compatible Ebola Virus Disease symptoms Patient denies exposure to infectious person. Patient denies travel to an Ebola-affected area in the 21 days before illness onset. No symptoms or risks identified at this time. Initial Sepsis Screen: Does the patient meet any 2 criteria? No. Patient's initial sepsis screen is negative. Does the patient have a suspected source of infection? No. Patient's initial sepsis screen is negative. Risk Assessment: Do you want to hurt yourself or someone else? Patient reports no desire to harm self or others. Note PT STARTED BLOOD THINNERS THURSDAY, NO LOC. Onset of symptoms was October 10, 2024. Care prior to arrival: None. Activity prior to arrival: None. Mechanism of Injury: No Mechanism of Injury. Transition of care: patient was not received from another setting of care. 04:56 Care prior to arrival: None. vc1 07:24 Mechanism of Injury: No Mechanism of Injury. ll1 Trauma Activation: Not Applicable Physician: ED Physician; Name: ; Notified At: ; Arrived At: Physician: General Surgeon; Name: ; Notified At: ; Arrived At: Physician: Radiology; Name: ; Notified At: ; Arrived At: Physician: Respiratory; Name: ; Notified At: ; Arrived At: Physician: Lab; Name: ; Notified At: ; Arrived At: Historical: - Allergies: 04:48 No Known Allergies; vc1 - PMHx: 04:48 breast cancer; Diabetes - NIDDM; GERD; Hypertension; vc1 - Immunization history:: Client reports receiving the 2nd dose of the Covid vaccine, Pneumococcal vaccine is up to date, Flu vaccine is up to date. - Infectious Disease History:: Denies. - Immunization history: Last tetanus immunization: - up to date. - Social history:: Smoking status: Patient denies any tobacco usage or history of. Screenin:04 [facility] ED Fall Risk Assessment (Adult) History of falling in the last 3 months, vc1 including since admission Yes- single mechanical fall (1 pt) Confusion or Disorientation No (0 pts) Intoxicated or Sedated No (0 pts) Impaired Gait No (0 pts) Mobility Assist Device Used No (0 pt) Altered Elimination No (0 pt) Score/Fall Risk Level 0 - 2 = Low Risk Oriented to surroundings, Maintained a safe environment, Educated pt \T\ family on fall prevention, incl call for assistance when getting out of bed. Abuse screen: Denies threats or abuse. Nutritional screening: No deficits noted. Tuberculosis screening: No symptoms or risk factors identified. Primary Survey: 04:04 NO uncontrolled hemorrhage observed. A: The client is awake and alert. The airway is vc1 patent. Breathing/Chest: Spontaneous respiratory effort, equal unlabored respirations, breath sounds clear bilaterally, regular pattern, symmetrical chest rise and fall. Circulation: No external hemorrhage present. Regular and strong central pulse, skin warm/dry/normal color. Disability Pupils are equal, round, reactive to light and accommodation. Exposure/Environment: There is no evidence of uncontrolled external bleeding. BRUISING AND SWELLING TO LEFT EYE. 04:55 Reassessment Alertness and Airway: Awake and alert. The airway is patent. Breathing: vc1 Spontaneous respiratory effort, equal unlabored respirations, breath sounds clear bilaterally, regular pattern with symmetrical chest rise and fall. Circulation: No external hemorrhage noted. Regular and strong central pulse, skin warm/dry/normal color. Disability: Pupils Pupils are equal, round, reactive to light and accomodation. Assessment: 04:04 General: Appears in no apparent distress. comfortable, slender, well groomed, well vc1 developed, well nourished, Behavior is calm, cooperative, appropriate for age. Pain: Denies pain. Neuro: Level of Consciousness is awake, alert, obeys commands, Oriented to person, place, time, situation, Appropriate for age Denies dizziness, headache. EENT: LEFT EYE BLACK AND PURPLE AND SWOLLEN. Cardiovascular: Heart tones S1 S2 present Capillary refill < 3 seconds Patient's skin is warm and dry. Respiratory: Airway is patent Respiratory effort is even, unlabored, Respiratory pattern is regular, symmetrical, Breath sounds are clear bilaterally. GI: No deficits noted. No signs and/or symptoms were reported involving the gastrointestinal system. : No deficits noted. No signs and/or symptoms were reported regarding the genitourinary system. Derm: Bruising that is dark purple, on left eye. Musculoskeletal: Circulation, motion, and sensation intact. Range of motion: intact in all extremities. Vital Signs: 04:04 BP 155 / 55; Pulse 63; Resp 14; Temp 98.1; Pulse Ox 97% ; Weight 68.04 kg; Height 5 ft. vc1 4 in. ; Pain 0/10; 07:00 BP 151 / 61; Pulse 61; Resp 14; Pulse Ox 97% on R/A; Pain 0/10; ll1 04:04 Body Mass Index 25.75 (68.04 kg, 162.56 cm) vc1 04:04 Pain Scale: Adult vc1 07:00 Pain Scale: Adult ll1 Enid Coma Score: 04:04 Eye Response: spontaneous(4). Motor Response: obeys commands(6). Verbal Response: vc1 oriented(5). Total: 15. Trauma Score (Adult): 04:04 Eye Response: spontaneous(1); Verbal Response: oriented(1); Motor Response: obeys vc1 commands(2); Systolic BP: > 89 mm Hg(4); Respiratory Rate: 10 to 29 per min(4); Enid Score: 15; Trauma Score: 12 ED Course: 03:46 Patient arrived in ED. gm2 03:46 Mathew Hartman DO is Private Physician. gm2 04:08 John Andrews MD is Attending Physician. ec2 04:48 Triage completed. vc1 04:50 Arm band placed on right wrist. vc1 04:56 Patient has correct armband on for positive identification. Bed in low position. Call vc1 light in reach. Pulse ox on. NIBP on. 05:19 Knee Left 3 View XRAY In Process Unspecified. EDMS 05:23 CT Head C Spine In Process Unspecified. EDMS 05:23 Facial Bones W/O Con CT In Process Unspecified. EDMS 07:05 Mathew Hartman DO is Referral Physician. ec2 07:23 No provider procedures requiring assistance completed. Patient did not have IV access ll1 during this emergency room visit. 07:24 Provided Education on: return to ED for worsening symptoms. ll1 07:24 Patient maintains SpO2 saturation greater than 95% on room air. ll1 07:25 Thermoregulation: warm blanket given to patient. ll1 Administered Medications: No medications were administered Medication: 04:55 VIS not applicable for this client. vc1 Intake: 04:04 N/A vc1 Outcome: 07:05 Discharge ordered by . ec2 07:15 Patient left the ED. ll1 07:15 Discharged to home ambulatory, ll1 07:15 Condition: stable 07:15 Discharge instructions given to patient, family, Instructed on discharge instructions, follow up and referral plans. Demonstrated understanding of instructions, follow-up care, Prescriptions given X 07:24 Patient's length of stay was not longer than 2 hours. ll1 Signatures: Dispatcher [employer] Christina Baig RN RN ll1 Angelika Carrasco RN RN vc1 John Andrews MD MD ec2 Silvia Francisco 2 Corrections: (The following items were deleted from the chart) 04:52 04:46 Chief complaint: Patient states: SHOE GOT CAUGHT ON AC VENT IN FLOOR, TRIPPED AND vc1 FELL ON FACE. vc1 04:52 04:46 Method Of Arrival: Ambulatory vc1 vc1 04:52 04:46 BP 155 / 55; Pulse 63bpm; Resp 14bpm; Pulse Ox 97%; Temp 98.1F; 68.04 kg; Height vc1 5 ft. 4 in.; BMI: 25.7; Pain 0/10, Adult; vc1 04:52 04:46 Acuity: MARKUS 3 vc1 vc1
--- NOTE | 2024-10-10 07:05 | EDPHYS ---
Physician Documentation [facility] Name: Yelena Ortez Age: 74 yrs Sex: Female : 1950 Arrival Date: 10/10/2024 Time: 03:38 Bed 5 Private MD: Devan [facility] ED Physician John Andrews HPI: 10/10 04:49 This 74 yrs old Female presents to ER via Ambulatory with complaints of Fall ec2 Injury, Eye Swelling. 04:49 Patient arrives today for evaluation after ground-level fall. Reports that she was ec2 walking and subsequently tripped and fell over the vent. Reports that she injured her left knee and struck her left face. No LOC, is on Plavix.. Historical: - Allergies: 04:48 No Known Allergies; vc1 - PMHx: 04:48 breast cancer; Diabetes - NIDDM; GERD; Hypertension; vc1 - Immunization history:: Client reports receiving the 2nd dose of the Covid vaccine, Pneumococcal vaccine is up to date, Flu vaccine is up to date. - Infectious Disease History:: Denies. - Immunization history: Last tetanus immunization: - up to date. - Social history:: Smoking status: Patient denies any tobacco usage or history of. ROS: 04:50 Constitutional: as per hpi ec2 Exam: 04:50 Constitutional: GEN: No acute distress HEENT: -Head: no deformities -Eyes: EOMI CV: ec2 regular rate LUNGS: no respiratory distress ABD: non-tender SKIN: Contusion to the left forehead area as well as the left periorbital area without laceration appreciated. MSK: No C/T/L spine deformities RUE w/o bony deformity LUE w/o bony deformity RLE w/o bony deformity LLE w/o bony deformity, TTP to the left lateral knee NEURO: moves all extremities equally, GCS 15 (E4, V5, M6) Vital Signs: 04:04 BP 155 / 55; Pulse 63; Resp 14; Temp 98.1; Pulse Ox 97% ; Weight 68.04 kg; Height 5 ft. vc1 4 in. ; Pain 0/10; 07:00 BP 151 / 61; Pulse 61; Resp 14; Pulse Ox 97% on R/A; Pain 0/10; ll1 04:04 Body Mass Index 25.75 (68.04 kg, 162.56 cm) vc1 04:04 Pain Scale: Adult vc1 07:00 Pain Scale: Adult ll1 Sujata Coma Score: 04:04 Eye Response: spontaneous(4). Motor Response: obeys commands(6). Verbal Response: vc1 oriented(5). Total: 15. Trauma Score (Adult): 04:04 Eye Response: spontaneous(1); Verbal Response: oriented(1); Motor Response: obeys vc1 commands(2); Systolic BP: > 89 mm Hg(4); Respiratory Rate: 10 to 29 per min(4); Sujata Score: 15; Trauma Score: 12 MDM: 04:44 Medical Screening Exam initiated ec2 04:50 Data reviewed: vital signs, nurses notes. ED course: Patient arrives today for ec2 evaluation after ground-level fall. Examination reveals MSK findings as above. Will obtain CT scan of the head and C-spine as well as maxillofacial to evaluate for bony fracture. Will also obtain the radiograph. Differential includes facial bone fracture, intracranial brain bleed given the patient's blood thinner use, C-spine fracture given the patient's age as well as new fracture.. 07:04 ED course: CT of the head and C-spine and facial bones negative for fractures. Knee ec2 x-ray negative. Will discharge home. Return precautions given.. 10/10 04:48 Order name: CT Head C Spine ec2 10/10 04:48 Order name: Facial Bones W/O Con CT ec2 10/10 04:48 Order name: Knee Left 3 View XRAY ec2 Administered Medications: No medications were administered Disposition Summary: 10/10/24 07:05 Discharge Ordered Notes: Location: Home ec2 Condition: Stable ec2 Diagnosis - Facial Injury ec2 - Knee Pain ec2 Followup: ec2 - With: Mathew Hartman DO - When: - Reason: Recheck today's complaints Discharge Instructions: - Discharge Summary Sheet ec2 - Facial or Scalp Contusion, [id number] ec2 Forms: - Medication Reconciliation Form ec2 - Antibiotic Education ec2 - Prescription Opioid Use ec2 - Patient Portal Instructions ec2 - Leadership Thank You Letter ec2 Signatures: Dispatcher [employer] Christina Baig RN RN ll1 Angelika Carrasco RN RN vc1 John Andrews MD MD ec2 Corrections: (The following items were deleted from the chart) 04:51 04:49 Patient arrives today for evaluation after ground-level fall. Reports that . ec2 ec2
[2024-10-10 09:53] VITALS: BP 155/55; TEMP 98.1; O2SAT 97
--- NOTE | 2024-10-10 15:33 | RAD REPORT ---
CLINICAL HISTORY: L facial bone injury. COMPARISON: None. TECHNIQUE: CT MAXILLOFACIAL WITHOUT IV CONTRAST on 10/10/2024 4:48 AM STAFF MIDWIFE/APPRENTICESHIP DIRECTOR This exam was performed according to our departmental dose-optimization program, which includes autom ated exposure control, adjustment of the mA and/or kV according to patient size and/or use of iterative reconstruction techn ique. FINDINGS: There is no acute fracture. The paranasal sinuses are clear. There is left periorbital soft tissue sw elling. Mastoid air cells are clear. Temporomandibular joints are intact. There is a left frontal scalp contusion. There are coarse calcif ications within the left side of tongue which were present previously. IMPRESSION: No acute fracture. Electronically signed by: Jeff Bautista MD 10/10/2024 06:58 AM STAFF MIDWIFE/APPRENTICESHIP DIRECTOR Due to temporary technical issues with the PACS/Wish reporting system, reports are being ana maria d by the in-house radiologist without review as a courtesy to ensure prompt reporting the interpreting radiologist is fully responsible for the content of the report. Transcribed Date/Time: 10/10/2024 3:33 PM
== END 2024-10-10 07:15 | disposition home or self-care (01) ==
LOC: ER 03:38
DX: S00.12XA Contusion of left eyelid and periocular area, initial encounter (principal); M25.562 Pain in left knee; W01.0XXA Fall on same level from slipping, tripping and stumbling without subsequent striking against object, initial encounter; E11.9 Type 2 diabetes mellitus without complications; I10 Essential (primary) hypertension; Z79.01 Long term (current) use of anticoagulants
CPT/HCPCS: 70450; 70486; 72125; 76377; 99283